=== PATIENT | male | born 1980 ===

== ENCOUNTER 2020-07-15 15:27 | Emergency (ER) | payer OTHER, SELFPAY ==
[2020-07-15 17:07] VITALS: BP 161/94; PULSE 83; RESP 18; TEMP 36.9; O2SAT 98; BMI 32.7
[2020-07-15 17:32] LABS: Glucose Urine UA NEG (NEG); Leukocyte Esterase Urine NEG (NEG); Nitrite Urine NEG (NEG); PH 6.5 (5.0-8.0); Specific Gravity - Urine >= 1.030 (1.005-1.025); Urine Blood NEG (NEG); Urine Ketones 5 MG/DL (NEG); Urine Protein NEG (NEG-TRACE)
[2020-07-15 17:33] LABS: Appearance Urine CLEAR; Color Urine YELLOW
[2020-07-15 17:56] VITALS: BP 149/90; PULSE 75; RESP 16; TEMP 36.7; O2SAT 96
--- NOTE | 2020-07-15 18:06 | CT_ITS ---
EXAMINATION: CT ABDOMEN AND PELVIS WITHOUT CONTRAST CLINICAL INFORMATION: Bilateral flank pain. Hematuria. No urinary tract infection COMPARISON: None TECHNIQUE: Multidetector volumetric imaging was performed from the superior aspect of the liver through the pubic symphysis. Sagittal and coronal reformatted images were obtained on the technologist's workstation. This CT examination was performed using dose optimization techniques as appropriate, variously including the following: *Automated exposure control *Adjustment of mA and/or kV according to patient size (this includes techniques or standardized protocols for targeted exams where dose is matched to indication/reason for exam; i.e. extremities or head) *Use of iterative reconstruction technique DLP: 680 mGy-cm FINDINGS: LUNG BASES: The visualized lung bases are unremarkable. LIVER, GALLBLADDER, AND BILIARY TREE: Liver is diffusely hypoattenuating consistent with diffuse hepatic steatosis, particularly in the right lobe of liver. There is focal fatty sparing adjacent the gallbladder fossa. No focal liver lesion seen. The gallbladder is unremarkable with no evidence of radiopaque gallstones, gallbladder wall thickening, or obvious pericholecystic inflammatory changes. PANCREAS: Unremarkable. SPLEEN: Unremarkable. ADRENAL GLANDS: Unremarkable. KIDNEYS AND URETERS: The kidneys are normal in size, shape, and attenuation. No hydronephrosis, hydroureter, or calculi seen. No perinephric stranding. BLADDER: Unremarkable. GASTROINTESTINAL TRACT: The small and large bowel are unremarkable. The appendix is unremarkable. ABDOMINAL WALL: No significant hernia is appreciated. LYMPH NODES: Normal. VASCULAR: Unremarkable. PELVIC VISCERA: Unremarkable. OSSEOUS STRUCTURES: Unremarkable. CT/CT abdomen pelvis wo con IMPRESSION: No acute CT findings. No radiopaque urolithiasis. No hydronephrosis or hydroureter.
--- NOTE | 2020-07-15 18:07 | ED_ITS ---
HPI - Male Genitourinary General Chief complaint: Urogenital-Male Stated complaint: blood in urine Time Seen by Provider: 07/15/20 17:53 Source: patient Mode of arrival: ambulatory Limitations: no limitations History of Present Illness HPI Narrative: Patient comes to emergency room complaining of bilateral flank pain. Patient states it has been going on for 3-4 days. Patient states he feels a pinching sensation in both flanks intermittently. He came to the emergency room because this morning he noticed that he urinated blood , describes the urine as being very red Related Data Home Medications Medication Instructions Recorded Confirmed albuterol sulfate 90 mcg/actuation 2 puff PO Q4H PRN 04/05/20 04/05/20 aerosol inhaler cetirizine 10 mg tablet 10 mg PO DAILY 04/05/20 04/05/20 Previous Rx's Medication Instructions Recorded cyclobenzaprine 10 mg tablet 10 mg PO BEDTIME PRN #7 tab 06/21/20 prednisone 20 mg tablet 20 mg PO DAILY 9 Days #18 tab MDD 06/21/20 3 for 3days;2 for 3 days;1 3da Allergies Allergy/AdvReac Type Severity Reaction Status Date / Time shellfish derived Allergy Unknown HIVES Verified 07/15/20 17:07 [SHELLFISH DERIVED] shellfish Allergy Unknown hives, Uncoded 02/23/20 00:00 swelling Review of Systems Review of Systems: Constitutional : No Weight loss, No Fever, No Chills, No Night Sweats, No Fatigue, No Malaise ENT/Mouth : No Hearing loss, No Ear Pain, No Nasal Congestion, No Sinus Pain, No Hoarseness, No sore throat, No Rhinorrhea, No Swallowing Difficulty Eyes: No Eye Pain, No Swelling, No Redness, No Foreign Body, No Discharge, No Vision Changes Cardiovascular : No Chest Pain, No SOB, No Dyspnea on Exertion, No Orthopnea, No Edema, No Palpitations Respiratory : No Cough, No Sputum, No Wheezing, No Smoke Exposure, No Dyspnea Gastrointestinal : No Nausea, No Vomiting, No Diarrhea, No Constipation, No abdominal Pain, No Hematochezia, No Melena Genitourinary : no irregular bleeding, No Dysuria, No Urinary Frequency, complaining of Hematuria, No Urinary Incontinence, No Urgency, complaining of bilateral flank Pain, No Urinary Flow Changes, No Hesitancy, Musculoskeletal : No joint pain, No Myalgias, No Joint Swelling Skin : No Skin Lesions, No rash Neuro : No Weakness, No Numbness, No Paresthesias, No Loss of Consciousness, No Dizziness, No Headache Psych : No Anxiety/Panic, No Depression, No SI/HI/AH/VH, No Social Issues, Heme/Lymph: No Bruising, No Bleeding,No Lymphadenopathy Endocrine : No Polyuria, No Polydipsia, No Temperature Intolerance [facility] Past Medical History Medical History Asthma, mild Environmental allergies Impaired fasting blood sugar LFT elevation Social History Social History Alcohol intake: never Smoking Status: Never smoker Use of substances other than those prescribed or required for medical reasons: Yes Substance Use Type: Marijuana Substance Use Frequency: Daily Advance Directives: No Advance Directives Information Provided: No Physical Exam Vital Signs: Vital Signs: Last Vital Signs Temp 98.2 F 07/15/20 20:06 Pulse 77 07/15/20 20:06 Resp 18 07/15/20 20:06 BP 154/97 H 07/15/20 20:06 Pulse Ox 96 07/15/20 20:06 Body Mass Index 32.7 In Appearance: Alert. Oriented X3. No acute distress. Eyes: Pupils equal, round and reactive to light. ENT: Pharynx normal. Neck: Normal inspection. Neck supple. No lymph nodes noted. No crepitus CVS: Normal heart rate and rhythm. Pulses normal. Normal S1 and S2 Respiratory: No respiratory distress. Breath sounds normal. No Wheezing. No rales Abdomen: Soft and nontender. No rigidity. No distention. good BS x4, no CVA tenderness Skin: Skin warm and dry. Normal skin color. Normal skin turgor. Extremities: No lower extremity edema. No lower extremity edema. No Lacerations. No Rash Neuro: Oriented X 3. No motor deficit. No sensory deficit. Moving all extermities. No slurred speech. Course Course Course Narrative: Patient asymptomatic. There is no blood in the urine, CT scan does not show kidney stones. I discussed with the patient that he may have cystitis. Antibiotics are not indicated at this time, no UTI. Discussed with the patient that if this keeps happening, he may need a cystoscopy. MDM - Male Genitourinary Lab Data Result diagrams: 07/15/20 18:19 07/15/20 18:19 Labs: Lab Results 07/15/20 07/15/20 07/15/20 Range/Units 17:22 18:19 18:19 WBC 8.4 (4.8-10.8) X10*3/uL RBC 4.25 L (4.60-5.80) X10*6/uL Hgb 13.0 L (14.0-18.0) g/dl Hct 37.8 L (42-52) % MCV 88.9 (80-98) fL MCH 30.6 (27.0-33.0) pg MCHC 34.4 (31.0-36.0) g/dl RDW 11.9 (11.0-16.0) % Plt Count 231 (160-400) X10*3/uL MPV 9.6 (9.4-12.4) fL Immature Gran % (Auto) 0.2 (0.0-0.4) % Neut % (Auto) 38.9 L (45-73) % Lymph % (Auto) 44.5 H (20-40) % [place] % (Auto) 9.8 (2-11) % Eos % (Auto) 6.1 H (0-4) % Baso % (Auto) 0.5 (0-2) % Lymph # (Auto) 3.7 (1.2-4.9) X10*3/uL [place] # (Auto) 0.8 (0.1-1.2) X10*3/uL Eos # (Auto) 0.5 H (0.0-0.4) X10*3/uL Baso # (Auto) 0.0 (0.0-0.2) X10*3/uL Abs Immat Gran (auto) 0.02 (0.00-0.03) X10*3/uL Absolute Neuts (auto) 3.3 (2.0-8.3) X10*3/uL Absolute Nucleated RBC 0.000 (0.0-0.012) X10*3/uL Nucleated RBC % (auto) 0.0 (0.0-0.2) /100WBC Sodium 138 (135-145) mmol/L Potassium 3.9 (3.3-5.1) mmol/l Chloride 104 (96-108) mmol/L Carbon Dioxide 26 (22-29) mmol/L Anion Gap 12 (12-20) BUN 19 H (9-16) mg/dL Creatinine 1.04 (0.5-1.4) mg/dL Estim Creat Clear Calc 104.6 Estimated GFR > 60 Random Glucose 140 H (60-115) mg/dL Calcium 8.8 (8.4-10.2) mg/dL Urine Color YELLOW Urine Appearance CLEAR Urine pH 6.5 (5.0-8.0) Ur Specific [place] >= 1.030 H (1.005-1.025) Urine Protein NEG (NEG-TRACE) MG/DL Urine Glucose (UA) NEG (NEG) MG/DL Urine Ketones 5 (NEG) MG/DL Urine Blood NEG (NEG) Urine Nitrite NEG (NEG) Ur Leukocyte Esterase NEG (NEG) Discharge Plan Discharge Clinical Impression: Cystitis Patient Disposition: Home, Self-Care Instructions: Interstitial Cystitis (ED) Additional Instructions: Please follow-up with your primary care physician tomorrow. If you have any worsening or new symptoms, please return to the emergency room or call 911 Prescriptions: No Action albuterol sulfate 90 mcg/actuation HFA aerosol inhaler 2 puff PO Q4H PRNRF: 0 cetirizine 10 mg tablet 10 mg PO DAILY RF: 0 prednisone 20 mg tablet 20 mg PO DAILY MDD 3 for 3days;2 for 3 days;1 3da 9 Days Qty: 18 RF: 0 cyclobenzaprine 10 mg tablet 10 mg PO BEDTIME PRN (Reason: muscle spasm) Qty: 7 RF: 0
[2020-07-15 18:23] VITALS: BP 142/87; PULSE 67; RESP 18; TEMP 36.7; O2SAT 96
[2020-07-15 18:24] LABS: MANUAL DIFF FLAG NO
[2020-07-15 18:25] LABS: Basophils Percent Auto 0.5 % (0-2); Eosinophils Absolute Auto 0.5 X10*3/uL (0.0-0.4); Eosinophils Percent Auto 6.1 % (0-4); Hematocrit 37.8 % (42-52); Imm Gran Abs Auto 0.02 X10*3/uL (0.00-0.03); Imm Gran Pct Auto 0.2 % (0.0-0.4); Lymphocytes Absolute Auto 3.7 X10*3/uL (1.2-4.9); Lymphocytes Percent Auto 44.5 % (20-40); Mean Corpuscular HGB Conc 34.4 g/dl (31.0-36.0); Mean Corpuscular Hemoglobin 30.6 pg (27.0-33.0); Mean Corpuscular Volume 88.9 fL (80-98); Mean Platelet Volume 9.6 fL (9.4-12.4); Monocytes Absolute Auto 0.8 X10*3/uL (0.1-1.2); Monocytes Percent Auto 9.8 % (2-11); Neutrophils Absolute Auto 3.3 X10*3/uL (2.0-8.3); Neutrophils Percent Auto 38.9 % (45-73); Platelet Count 231 X10*3/uL (160-400); Red Blood Count 4.25 X10*6/uL (4.60-5.80); Red Cell Distribution Width 11.9 % (11.0-16.0); White Blood Count 8.4 X10*3/uL (4.8-10.8)
--- NOTE | 2020-07-15 18:30 | PC.NURSE ---
patient a&ox3, vss, patient states he has hematuria as well as bilateral flank discomfort 10/07, labs drawn, urine obtained in triage, pt awaiting ct scan, will continue to monitor.
[2020-07-15 18:45] LABS: Anion Gap 12 (12-20); Blood Urea Nitrogen 19 mg/dL (9-16); Calcium 8.8 mg/dL (8.4-10.2); Carbon Dioxide 26 mmol/L (22-29); Chloride 104 mmol/L (96-108); Creatinine Clr Calc Pharmacy 104.6; Estimated Glomerular Filt Rate > 60; Glucose Random 140 mg/dL (60-115); Potassium 3.9 mmol/l (3.3-5.1); Sodium 138 mmol/L (135-145)
[2020-07-15 20:06] VITALS: BP 154/97; PULSE 77; RESP 18; TEMP 36.8; O2SAT 96
== END 2020-07-15 21:38 | disposition home or self-care (01) ==
PROVIDERS: Emergency Provider Emergency Medicine; PCP Internal Medicine
DX: N30.01 Acute cystitis with hematuria (principal); R10.9 Unspecified abdominal pain; F12.90 Cannabis use, unspecified, uncomplicated; Z79.899 Other long term (current) drug therapy
CPT/HCPCS: 36415; 74176; 80048; 81003; 85025; 99284

== ENCOUNTER → 2021-02-06 08:24 | Outpatient (REF) | payer OTHER, SELFPAY ==
--- NOTE | 2021-02-06 08:27 | CA_ITS ---
Transthoracic Echocardiogram Patient (Last, First, Middle): Cornelio oMreno, Gender: Male Date of : 1980 Age: 40 Procedure Date: 02/06/2021 Procedure Type: Transthoracic Echocardiogram Location: OP Height: 170.18 cm Weight: 94.8 kg BSA: 2.06 m2 Heart Rate: bpm BP: 140 / 90 mmHg Ux Visual Designer: JUSTUS Referring MD: Carrol Stafford MD Symptoms: R07.89 - Other chest pain Conclusions: - Essentially normal study Findings Left Ventricle Normal left ventricular size, thickness, and systolic function. The visually estimated ejection fraction is between 60-65%. Spectral Doppler is indicative of a normal filling pattern. Right Ventricle Normal right ventricular cavity size and systolic function. Atria Both atria are normal in size. There is no evidence of interatrial shunt. Aortic Valve The aortic valve structure and function is likely normal. There is no aortic valve stenosis. There is no aortic valve regurgitation. Mitral Valve Normal mitral valve structure and function. There is trace mitral valve regurgitation. There is no mitral valve stenosis. Pulmonic Valve The pulmonic valve was not well visualized. Tricuspid Valve Likely normal tricuspid valve structure and function. There is trace tricuspid valve regurgitation. The right ventricular systolic pressure is normal. The right ventricular systolic pressure is 26 mmHg. Normal right atrial pressure. There is no evidence of pulmonary hypertension. Great Vessels All visible segments of the aorta are normal in size. The pulmonary artery was not well visualized. Venous The inferior vena cava is normal in size and collapses greater than 50% with inspiration. Pericardium/Pleural There is no evidence of pericardial effusion. Prior Study Comparison No prior study available for comparison. Measurements 2D Linear Measurements IVSd: 1.02 0.6-0.9/0.6-1.0 cm LVIDd: 4.18 3.9-5.3/4.2-5.9 cm LVIDd Index: 2.03 2.4-3.2/2.2-3.1 cm/m2 LVIDs: 2.83 2.0-3.6 cm LVPWd: 1.05 0.7-1.1 cm Ao Root: 3.10 2.1-3.5 cm LA Diam: 3.40 2.7-3.8/3.0-4.0 cm LAIDs Index: 1.65 1.5-2.3 cm/m2 LV Mass: 236.84 67-162/88-224 g LV Mass Index: 114.97 43-95/49-115 g/m2 LVOT Diam: 2.30 3.0+(-)1.3 cm 2D Systolic Function EF 4C: 53.60 >55% EF 2C: 64.20 >55% EF BiP: 60.10 >55% Mitral Valve MV Pk E: 0.97 MV PK A: 0.61 MV Decel Time: 175.00 E/A: 1.60 E'Lateral: 13.40 E'Medial: 9.36 E/E' Med: 10.40 E/E' Lat: 7.30 PHT: 51.00 MVA PHT: 4.31 Decel [place]: 5.56 Aortic Valve AoV Pk Kuldeep: 1.25 AoV Pk Grad: 6.00 LVOT LVOT Pk Kuldeep: 0.85 LVOT Mn Kuldeep: 0.59 LVOT VTI: 0.19 LVOT Pk Grad: 3.00 LVOT Mn Grad: 2.00 LVOT Diam: 2.30 LVOT Area: 4.15 Diastolic Function MV Pk E: 0.97 MV Pk A: 0.61 E/A: 1.60 E'Medial: 9.36 E/E' Med: 10.40 E' Laterial: 13.40 E/E' Lat: 7.30 Right Ventricle TAPSE (mm): 2.53 Tricuspid Valve TR Pk Kuldeep: 2.42 TR Pk Grad: 23.00 RA Press: 3.00 RVSP: 26.00 Great Vessels Aorta Ao Root-2D: 3.10 2.0-3.7 cm Ao Asc: 3.20 2.1-3.4 cm Ao Arch: 2.70 Updated in Other Vendor System with Status of Final Chandler Luevano MD electronically signed on 02/07/2021 4:01:51 PM with status of Final
== END ==
LOC: HO.CARD 08:24
PROVIDERS: PCP Internal Medicine; Visit Provider Internal Medicine
DX: R07.89 Other chest pain (principal); R94.31 Abnormal electrocardiogram [ECG] [EKG]
CPT/HCPCS: 93306

== ENCOUNTER 2021-05-04 07:57 | Outpatient (REF) | payer OTHER, SELFPAY ==
[2021-05-04 11:39] LABS: MANUAL DIFF FLAG NO
[2021-05-04 11:46] LABS: Basophils Absolute Auto 0.1 X10*3/uL (0.0-0.2); Basophils Percent Auto 0.6 % (0-2); Eosinophils Absolute Auto 0.2 X10*3/uL (0.0-0.4); Eosinophils Percent Auto 2.4 % (0-4); Hematocrit 43.9 % (42.0-52.0); Hemoglobin 15.1 g/dl (14.0-18.0); Imm Gran Abs Auto 0.03 X10*3/uL (0.00-0.03); Imm Gran Pct Auto 0.4 % (0.0-0.4); Lymphocytes Absolute Auto 2.7 X10*3/uL (1.2-4.9); Lymphocytes Percent Auto 33.9 % (20-40); Mean Corpuscular HGB Conc 34.4 g/dl (31.0-36.0); Mean Corpuscular Hemoglobin 29.9 pg (27.0-33.0); Mean Corpuscular Volume 86.9 fL (80.0-98.0); Mean Platelet Volume 11.9 fL (9.4-12.4); Monocytes Absolute Auto 0.7 X10*3/uL (0.1-1.2); Monocytes Percent Auto 8.3 % (2-11); Neutrophils Absolute Auto 4.4 x10*3/uL (2.0-8.3); Neutrophils Percent Auto 54.4 % (45-73); Platelet Count 234 X10*3/uL (160-400); Red Blood Count 5.05 X10*6/uL (4.60-5.80); Red Cell Distribution Width 11.7 % (11.0-16.0)
[2021-05-04 12:02] LABS: Alanine Aminotransferase 57 U/L (0-40); Albumin Level 4.8 g/dL (3.5-5.0); Alkaline Phosphatase 90 U/L (39-117); Anion Gap 15 (12-20); Aspartate Amino Transferase 33 U/L (5-37); Bilirubin Total 0.6 mg/dL (0.0-1.0); Blood Urea Nitrogen 20 mg/dL (9-16); Calcium 9.1 mg/dL (8.4-10.2); Carbon Dioxide 24 mmol/L (22-29); Chloride 97 mmol/L (96-108); Cholesterol 193 mg/dL; Estimated Glomerular Filt Rate > 60; Glucose Fasting 328 mg/dL (60-99); HDL Cholesterol 26 mg/dL; Potassium 4.1 mmol/L (3.3-5.1); Sodium 132 mmol/L (135-145); Total Protein 7.9 g/dL (6.5-8.0); Triglycerides 573 mg/dL
[2021-05-04 12:06] LABS: Estimated Average Glucose 295 mg/dL; Hemoglobin A1c % 11.9 %
[2021-05-04 12:26] LABS: TSH reflex Free T4 0.92 uIU/mL (0.32-4.0)
== END 2021-05-04 07:58 | disposition home or self-care (01) ==
LOC: HO.HMGCLDS 07:57
PROVIDERS: PCP Internal Medicine; Visit Provider Internal Medicine
DX: E66.9 Obesity, unspecified (principal); Z68.32 Body mass index [BMI] 32.0-32.9, adult; J45.909 Unspecified asthma, uncomplicated; R73.01 Impaired fasting glucose; R79.89 Other specified abnormal findings of blood chemistry; Z91.09 Other allergy status, other than to drugs and biological substances; R07.89 Other chest pain; R94.31 Abnormal electrocardiogram [ECG] [EKG]; B36.0 Pityriasis versicolor; R03.0 Elevated blood-pressure reading, without diagnosis of hypertension
CPT/HCPCS: 36415; 80053; 80061; 83036; 84443; 85025

== ENCOUNTER 2021-09-14 11:28 | Outpatient (REF) | payer OTHER, SELFPAY ==
[2021-09-14 14:06] LABS: Estimated Average Glucose 183 mg/dL
[2021-09-14 14:08] LABS: Alanine Aminotransferase 62 U/L (0-40); Albumin Level 4.5 g/dL (3.5-5.0); Alkaline Phosphatase 58 U/L (39-117); Anion Gap 12 (12-20); Aspartate Amino Transferase 31 U/L (5-37); Bilirubin Total 0.8 mg/dL (0.0-1.0); Blood Urea Nitrogen 20 mg/dL (9-16); Calcium 9.6 mg/dL (8.4-10.2); Carbon Dioxide 27 mmol/L (22-29); Chloride 102 mmol/L (96-108); Estimated Glomerular Filt Rate > 60; Glucose Random 166 mg/dL (60-115); Potassium 3.9 mmol/L (3.3-5.1); Sodium 137 mmol/L (135-145); Total Protein 7.5 g/dL (6.5-8.0); Triglycerides 121 mg/dL
[2021-09-15 19:16] LABS: LDL Cholesterol Direct 120 mg/dL (<100)
== END 2021-09-14 11:29 | disposition home or self-care (01) ==
LOC: HO.HMGCLDS 11:28
PROVIDERS: PCP Internal Medicine; Visit Provider Internal Medicine
DX: E11.65 Type 2 diabetes mellitus with hyperglycemia (principal); E78.1 Pure hyperglyceridemia; I10 Essential (primary) hypertension; J45.909 Unspecified asthma, uncomplicated; R79.89 Other specified abnormal findings of blood chemistry; E66.9 Obesity, unspecified; Z68.32 Body mass index [BMI] 32.0-32.9, adult; Z91.09 Other allergy status, other than to drugs and biological substances
CPT/HCPCS: 36415; 80053; 83036; 83721; 84478

== ENCOUNTER 2022-02-04 06:59 | Outpatient (REF) | payer OTHER, SELFPAY ==
[2022-02-04 11:33] LABS: Estimated Average Glucose 171 mg/dL; Hemoglobin A1c % 7.6 %
[2022-02-04 12:03] LABS: Alanine Aminotransferase 55 U/L (0-40); Albumin Level 4.5 g/dL (3.5-5.0); Alkaline Phosphatase 56 U/L (39-117); Anion Gap 13 (12-20); Aspartate Amino Transferase 29 U/L (5-37); Bilirubin Total 0.6 mg/dL (0.0-1.0); Blood Urea Nitrogen 22 mg/dL (9-16); Calcium 9.1 mg/dL (8.4-10.2); Carbon Dioxide 27 mmol/L (22-29); Chloride 100 mmol/L (96-108); Cholesterol 181 mg/dL; Estimated Glomerular Filt Rate > 60; Glucose Fasting 214 mg/dL (60-99); HDL Cholesterol 41 mg/dL; LDL Cholesterol Calculated 109 mg/dl; Potassium 3.9 mmol/L (3.3-5.1); Sodium 136 mmol/L (135-145); Total Protein 7.3 g/dL (6.5-8.0); Triglycerides 159 mg/dL
== END 2022-02-04 07:00 | disposition home or self-care (01) ==
LOC: HO.HMGCLDS 06:59
PROVIDERS: PCP Internal Medicine; Visit Provider Internal Medicine
DX: E78.1 Pure hyperglyceridemia (principal); I10 Essential (primary) hypertension; E11.9 Type 2 diabetes mellitus without complications
CPT/HCPCS: 36415; 80053; 80061; 83036

== ENCOUNTER 2022-09-26 07:36 | Outpatient (REF) | payer OTHER, SELFPAY ==
[2022-09-26 11:12] LABS: MANUAL DIFF FLAG NO
[2022-09-26 11:18] LABS: Basophils Absolute Auto 0.1 X10*3/uL (0.0-0.2); Basophils Percent Auto 0.6 % (0-2); Eosinophils Absolute Auto 0.3 X10*3/uL (0.0-0.4); Eosinophils Percent Auto 3.4 % (0-4); Hematocrit 40.4 % (42.0-52.0); Hemoglobin 13.6 g/dl (14.0-18.0); Imm Gran Abs Auto 0.04 X10*3/uL (0.00-0.03); Imm Gran Pct Auto 0.5 % (0.0-0.4); Lymphocytes Percent Auto 33.4 % (20-40); Mean Corpuscular HGB Conc 33.7 g/dl (31.0-36.0); Mean Corpuscular Hemoglobin 30.2 pg (27.0-33.0); Mean Corpuscular Volume 89.8 fL (80.0-98.0); Mean Platelet Volume 10.4 fL (9.4-12.4); Monocytes Absolute Auto 0.9 X10*3/uL (0.1-1.2); Monocytes Percent Auto 10.4 % (2-11); Neutrophils Absolute Auto 4.6 x10*3/uL (2.0-8.3); Neutrophils Percent Auto 51.7 % (45-73); Platelet Count 298 X10*3/uL (160-400); Red Cell Distribution Width 12.7 % (11.0-16.0); White Blood Count 8.9 X10*3/uL (4.8-10.8)
[2022-09-26 11:28] LABS: Estimated Average Glucose 206 mg/dL; Hemoglobin A1c % 8.8 %
[2022-09-26 11:38] LABS: Alanine Aminotransferase 57 U/L (0-40); Albumin Level 4.4 g/dL (3.5-5.0); Alkaline Phosphatase 53 U/L (39-117); Anion Gap 13 (12-20); Aspartate Amino Transferase 24 U/L (5-37); Bilirubin Total 0.7 mg/dL (0.0-1.0); Blood Urea Nitrogen 23 mg/dL (9-16); Calcium 9.4 mg/dL (8.4-10.2); Carbon Dioxide 27 mmol/L (22-29); Chloride 101 mmol/L (96-108); Cholesterol 177 mg/dL; Estimated Glomerular Filt Rate > 60; Glucose Fasting 221 mg/dL (60-99); Glucose Random 225 mg/dL (60-115); HDL Cholesterol 44 mg/dL; LDL Cholesterol Calculated 106 mg/dl; Potassium 4.2 mmol/L (3.3-5.1); Sodium 137 mmol/L (135-145); Total Protein 7.1 g/dL (6.5-8.0); Triglycerides 137 mg/dL
[2022-09-26 12:04] LABS: Creatinine Urine 120.85 mg/dL; Microalbum/Creatinine Ratio Ur 5.7 ug/mg cr
== END 2022-09-26 07:37 | disposition home or self-care (01) ==
LOC: HO.HMGCLDS 07:36
PROVIDERS: PCP Internal Medicine; Visit Provider Internal Medicine
DX: E11.65 Type 2 diabetes mellitus with hyperglycemia (principal); E78.9 Disorder of lipoprotein metabolism, unspecified; E78.1 Pure hyperglyceridemia; I10 Essential (primary) hypertension
CPT/HCPCS: 36415; 80053; 80061; 82043; 83036; 85025

== ENCOUNTER 2023-01-17 08:31 | Outpatient (AMB) | payer OTHER, SELFPAY ==
--- NOTE | 2023-01-17 08:46 | AM.OFFWIN_ITS ---
Intake Vital Signs 01/17/23 08:48 BP 122/76 Blood Pressure Location Rt brachial Position Sitting Pulse 74 Pulse Source Pulse Oximeter Pulse Oximetry (%) 98 Oxygen Delivery Method Room Air Intake Visit Reasons: EP, High Blood Sugar(over 300 per pt) Intake Note: Patient here for blood sugar being high which was 378, pt states it has been like this for about 3 weeks. Patient Tobacco Use Status: Former Tobacco user Quit Date: quit 17 years ago Allergies shellfish derived [SHELLFISH DERIVED] Allergy (Unknown, Verified 01/17/23 08:47) HIVES Do you need a note to return to daycare/school/sports/work: Yes HPI EP, High Blood Sugar(over 300 per pt) HPI0 Details 42-year-old male presents to the office for a sick visit. Patient has noticed that his blood sugars have been elevated over the last month. Random b lood sugars are greater than 300. Currently he is on pioglitazone only. He missed an appointment with his primary care provider last week. Reports symptoms of malaise and fatigue. [facility] Medical History Asthma, mild Environmental allergies Impaired fasting blood sugar LFT elevation Surgical History No pertinent past surgical history Family History Father Unknown family medical history Mother HTN (hypertension) Diabetes mellitus High cholesterol Daughter No problems noted. Daughter No problems noted. Daughter No problems noted. Social History Housing: House Alcohol intake: never Patient Tobacco Use Status: Former Tobacco user Quit Date: quit 17 years ago Tobacco use type: Cigarette Years Smoked: 12 e-Cigarette/Vaping Use: Never Used Substance Use Type: Marijuana Current occupational status: unemployed and student Cognitive needs: No Hearing needs: No Vision needs: No Physical Exam Vital Signs: Last Vital Signs Pulse 74 01/17/23 08:48 BP 122/76 01/17/23 08:48 Pulse Ox 98 01/17/23 08:48 Oxygen Delivery Method Room Air 01/17/23 08:48 Const General: cooperative and healthy appearing Nutritional Appearance: well nourished Orientation/consciousness: patient oriented x3 Limitations: no limitations HEENT Head: Yes normal to inspection Eyes General: appearance normal, both eyes and all related structures Neck Neck: Yes normal visual inspection Chest Chest palpation & inspection: normal palpation of entire chest wall Resp Effort & Inspection: normal respiratory effort Neuro General: patient oriented x3 Results AMB Random Glucose (hemocue) AMB Random Glucose (hemocue) 276 mg/dL Last Edit by DANY Mcmanus on 01/17/23 08:58 Results Reviewed Results Reviewed: Laboratory Last Values Random Glu (Clinic) 276 mg/dL 01/17/23 08:56 Assessment & Plan Assessment & Plan (1) Type 2 diabetes mellitus: Code(s): E11.9 - Type 2 diabetes mellitus without complications Plan: Patient had been taking metformin and sulfonylurea combination in the past. The same has been restarted. I asked him to continue the pioglitazone. He is sc heduled to make an appointment with the primary care provider in the next month to discuss further options. Orders: Orders AMB Random Glucose (hemocue) Today E11.65 - Type 2 diabetes mellitus with hyperglycemia, E11.9 - Type 2 diabetes mellitus without complications Medications: New glipizide-metformin 5-500 mg 1 tab PO BID 30 tabs 0RF Coding Level of Care Code Est Pt Level 4 (57486) Diagnoses Type 2 diabetes mellitus E11.9
[2023-01-17 08:48] VITALS: BP 122/76; PULSE 74; O2SAT 98
== END 2023-01-17 09:55 | disposition home or self-care (01) ==
PROVIDERS: PCP Internal Medicine; Visit Provider Internal Medicine
DX: E11.65 Type 2 diabetes mellitus with hyperglycemia (principal); E11.9 Type 2 diabetes mellitus without complications
CPT/HCPCS: 82948; 99214

== ENCOUNTER 2023-01-21 14:08 | Outpatient (AMB) | payer OTHER, SELFPAY ==
[2023-01-21 14:19] VITALS: BP 142/86; PULSE 89; O2SAT 95; BMI 32.0
--- NOTE | 2023-01-21 14:19 | MHC.PC.OV ---
Vital Signs 01/21/23 14:19 Height 5 ft 7 in Weight 204 lb 6 oz BMI 32.0 BP 142/86 H Blood Pressure Location Lt brachial Position Sitting Pulse 89 Pulse Source Pulse Oximeter Pulse Oximetry (%) 95 Oxygen Delivery Method Room Air Intake Visit Reasons: Follow up from walk in Allergies shellfish derived [SHELLFISH DERIVED] Allergy (Unknown, Verified 01/21/23 14:20) HIVES Medication List - Last Reconciled 01/21/23 by Carrol Stafford MD albuterol sulfate 90 mcg/actuation 2 puffs PO Q4H PRN 30 days albuterol sulfate 90 mcg/actuation (Ventolin HFA) 1 inh inhalation QID PRN 30 days blood sugar diagnostic (FreeStyle Lite Strips) Patient to take fasting blood sugar once daily blood-glucose meter (FreeStyle Lite Meter kit) Patient to take fasting blood sugar once daily cetirizine 10 mg PO DAILY 90 days epinephrine (EpiPen) 0.3 mg (0.3 mL) IM Q10M PRN 90 days glipizide-metformin 5-500 mg 1 tab PO BID lancets (FreeStyle Lancets) patient to take fasting blood sugar once daily losartan-hydrochlorothiazide 50-12.5 mg 1 tab PO DAILY 90 days pioglitazone 45 mg PO DAILY 90 days selenium sulfide 2.5% 1 appl topical DAILY 2 weeks Tobacco use date assessed: 01/21/23 Dental Screening Dental Screen Date: 01/21/23 Did you have a dental visit in the last 12 months?: Yes Did you have a dental problem in the last 6 months where you did not have access to dental care?: No Was dental information given to patient?: No [facility] Details Patient is a 42-year-old gentleman came in today for his regular follow-up appointment We stopped glipizide metformin last visit in August when he said he is having headaches with this medication and started him on pioglitazone. He came in recently seeing that his sugars are running high so he was restarted on glipizide metformin. Patient then stopped pioglitazone on his own thinking that he is only to take 1 medication. Explained to him that he is supposed to continue both of them glipizide metformin b.i.d. 12 hours apart and pioglitazone 45 mg once a day He is to monitor his fasting sugar and give me the readings in 7 days. Blood pressure is slightly elevated today patient is on losartan hydrochlorothiazide 50-12.5 mg no side effects. Continue gemfibrozil 600 mg for lipid control Seasonal allergies: Patient is on albuterol inhaler as needed, patient is taking long-acting antihistamine. Follow-up 3 months labs are needed before visit BMI elevated at 32.0 need to lose weight, he tells me that he has started going to gym [facility] Medical History Asthma, mild Environmental allergies Impaired fasting blood sugar LFT elevation Surgical History No pertinent past surgical history Family History Father Unknown family medical history Mother HTN (hypertension) Diabetes mellitus High cholesterol Daughter No problems noted. Daughter No problems noted. Daughter No problems noted. Social History Housing: House Alcohol intake: never Patient Tobacco Use Status: Former Tobacco user Quit Date: quit 17 years ago Tobacco use type: Cigarette Years Smoked: 12 e-Cigarette/Vaping Use: Never Used Substance Use Type: Marijuana Current occupational status: unemployed and student Cognitive needs: No Hearing needs: No Vision needs: No Questionnaire PHQ-9 Over the last 2 weeks, how often have you been bothered by any of the following problems? 1. Little interest or pleasure in doing things: not at all 2. Feeling down, depressed, or hopeless: not at all 3. Trouble falling or staying asleep, or sleeping too much: not at all 4. Feeling tired or having little energy: not at all 5. Poor appetite or overeating: not at all 6. Feeling bad about yourself - or that you are a failure or have let yourself or your family down: not at all 7. Trouble concentrating on things, such as reading the newspaper or watching television: not at all 8. Moving or speaking so slowly that other people could have noticed. Or the opposite - being so fidgety or restless that you have been moving around a lot more than usual: not at all 9. Thoughts that you would be better off or of hurting yourself in some way: not at all Total score: 0 Depression Screening Interpretation: Negative 51440 - PHQ-9 Billing: Yes Source: Developed by Drs. Brock Gusman, Rolly Solis and colleagues, with an educational fartun from [employer]. Thrive Questionnaire Date Thrive assessed: 01/21/23 I am a: Patient What is your living situation today?: I have a steady place to live Within the past 12 months, did the food you bought not last and you didn't have the money to get more?: Never true Within the past 12 months, did you worry whether your food would run out before you got money to buy more?: Never true Do you have trouble paying for medicines?: No Do you have trouble getting transportation to medical appointments?: No Do you have trouble paying your heating and electricity bill?: No Do you have trouble taking care of your child, family member or friend?: No Do you have trouble with day-to-day activities such as bathing, preparing meals, shopping, managing finances, etc.?: No Are you currently unemployed and looking for a job?: No Are you interested in more education?: No AUDIT C Alcohol Use Questionnaire (AUDIT-C) 1. How often do you have a drink containing alcohol?: Never 3. How often do you have six or more drinks on one occasion?: Never Total Score: 0 Score Reviewed/Action Taken: Yes SALIMA-7 AMB Questionnaire SALIMA-7 Date SALIMA - 7 assessed: 01/21/23 Feeling nervous, anxious, or on edge: 0 = Not at all Not being able to stop or control worryin = Not at all Worrying too much about different things: 0 = Not at all Trouble relaxin = Not at all Being so restless that it is hard to sit still: 0 = Not at all Becoming easily annoyed or irritable: 0 = Not at all Feeling afraid as if something awful might happen: 0 = Not at all Total SALIMA-7 score (0-4 normal; 5-9 mild; 10-14 moderate; 15-21 severe): 0 Source: Developed by Carly Malloy Kurt Kroenke and colleagues, with an educational fartun from [employer]. SALIMA-7 Assessment Billing SALIMA-7 Assessment Tool: SALIMA-7 Assessment 37813 Review of Systems Const Denies chills and Denies fever(s) ENT Denies epistaxis and Denies nasal discharge Card Denies chest pain Resp Denies chest congestion, Denies cough and Denies hemoptysis GI Denies diarrhea and Denies nausea Skin/Breast Denies rash Neuro Reports no additional complaints Psych Reports no additional complaints Endo Reports no additional complaints Physical exam (Primary Care) Vital Signs: Last Vital Signs Pulse 89 01/21/23 14:19 BP 142/86 H 01/21/23 14:19 Pulse Ox 95 01/21/23 14:19 Oxygen Delivery Method Room Air 01/21/23 14:19 BMI result Body Mass Index 32.0 Tobacco/Smoking Status: Tobacco use Status Tobacco use date assessed 01/21/23 01/21/23 14:20 Patient Tobacco Use Status Former Tobacco user 01/21/23 14:20 Tobacco use type Cigarette 01/21/23 14:20 e-Cigarette/Vaping Use Never Used 01/21/23 14:20 PHQ-9: PHQ-9 Score PHQ-9: Total score 0 01/21/23 14:38 Depression Screening Interpretation: Negative Thrive Assessment: Date of Thrive Assessment Date Thrive assessed 01/21/23 01/21/23 14:38 Const General: cooperative, comfortable and no acute distress Orientation/consciousness: patient oriented x3 HENMT Head: Yes normocephalic Eyes General: appearance normal, both eyes and all related structures Neck Neck: Yes supple Resp Effort & Inspection: normal respiratory effort, no cough and no stridor Cardio Rhythm: regular rhythm Heart sounds: S1 normal heart sound present and S2 normal heart sound present Skin General skin exam: turgor normal Neuro General: patient oriented x3, tone normal and moves all extremities Extrem Right lower extremity: no edema Left lower extremity: no edema Assessment and Plan Assessment & Plan (1) Diabetes type 2, uncontrolled: Code(s): E11.65 - Type 2 diabetes mellitus with hyperglycemia (2) Hypertension, essential: Code(s): I10 - Essential (primary) hypertension (3) Lipid disorder: Code(s): E78.9 - Disorder of lipoprotein metabolism, unspecified (4) Obesity (BMI 30.0-34.9): Code(s): E66.9 - Obesity, unspecified (5) Environmental allergies: Code(s): Z91.09 - Other allergy status, other than to drugs and biological substances (6) Asthma, mild: Code(s): J45.909 - Unspecified asthma, uncomplicated (7) Shellfish allergy: Code(s): Z91.013 - Allergy to seafood (8) Seasonal asthma: Code(s): J45.998 - Other asthma Plan Patient is a 42-year-old gentleman came in today for his regular follow-up appointment We stopped glipizide metformin last visit in August when he said he is having headaches with this medication and started him on pioglitazone. He came in recently seeing that his sugars are running high so he was restarted on glipizide metformin. Patient then stopped pioglitazone on his own thinking that he is only to take 1 medication. Explained to him that he is supposed to continue both of them glipizide metformin b.i.d. 12 hours apart and pioglitazone 45 mg once a day He is to monitor his fasting sugar and give me the readings in 7 days. Blood pressure is slightly elevated today patient is on losartan hydrochlorothiazide 50-12.5 mg no side effects. Continue gemfibrozil 600 mg for lipid control Seasonal allergies: Patient is on albuterol inhaler as needed, patient is taking long-acting antihistamine. Follow-up 3 months labs are needed before visit BMI elevated at 32.0 need to lose weight, he tells me that he has started going to gym Orders: Orders Comprehensive Met. Panel Today E11.65 - Type 2 diabetes mellitus with hyperglycemia, E66.9 - Obesity, unspecified, E78.9 - Disorder of lipoprotein metabolism, unspecified, I10 - Essential (primary) hypertension, J45.909 - Unspecified asthma, uncomplicated, Z91.09 - Other allergy status, other than to drugs and biological substances Hemoglobin A1c Today E11.65 - Type 2 diabetes mellitus with hyperglycemia, E66.9 - Obesity, unspecified, E78.9 - Disorder of lipoprotein metabolism, unspecified, I10 - Essential (primary) hypertension, J45.909 - Unspecified asthma, uncomplicated, Z91.09 - Other allergy status, other than to drugs and biological substances LDL Cholesterol Direct Today E11.65 - Type 2 diabetes mellitus with hyperglycemia, E66.9 - Obesity, unspecified, E78.9 - Disorder of lipoprotein metabolism, unspecified, I10 - Essential (primary) hypertension, J45.909 - Unspecified asthma, uncomplicated, Z91.09 - Other allergy status, other than to drugs and biological substances Microalbumin, Random (w Creat) Today E11.65 - Type 2 diabetes mellitus with hyperglycemia, E66.9 - Obesity, unspecified, E78.9 - Disorder of lipoprotein metabolism, unspecified, I10 - Essential (primary) hypertension, J45.909 - Unspecified asthma, uncomplicated, Z91.09 - Other allergy status, other than to drugs and biological substances Medications: Changed From glipizide-metformin 5-500 mg 1 tab PO BID 30 tabs 0RF To glipizide-metformin 5-500 mg 1 tab PO BID 90 days 180 tabs 0RF Diabetes Refilled pioglitazone 45 mg PO DAILY 90 days 90 tabs 1RF Coding Level of Care Code Est Pt Level 4 (03294) Diagnoses Diabetes type 2, uncontrolled E11.65 Hypertension, essential I10 Lipid disorder E78.9 Obesity (BMI 30.0-34.9) E66.9 Environmental allergies Z91.09 Asthma, mild J45.909 Shellfish allergy Z91.013 Seasonal asthma J45.998 Additional Codes SALIMA-7 Assessment Billing - SALIMA-7 Assessment Tool: SALIMA-7 Assessment 54965 ([id number])
== END 2023-01-21 14:45 | disposition home or self-care (01) ==
PROVIDERS: PCP Internal Medicine; Visit Provider Internal Medicine
DX: E11.65 Type 2 diabetes mellitus with hyperglycemia (principal); I10 Essential (primary) hypertension; J45.909 Unspecified asthma, uncomplicated; Z91.09 Other allergy status, other than to drugs and biological substances; E78.9 Disorder of lipoprotein metabolism, unspecified; E66.9 Obesity, unspecified; Z91.013 Allergy to seafood; Z68.32 Body mass index [BMI] 32.0-32.9, adult; J45.998 Other asthma
CPT/HCPCS: 99214

== ENCOUNTER 2023-07-22 14:24 | Outpatient (REF) | payer OTHER, SELFPAY ==
[2023-07-22 16:21] LABS: Estimated Average Glucose 154 mg/dL
[2023-07-22 16:22] LABS: Alanine Aminotransferase 51 U/L (0-40); Albumin Level 4.5 g/dL (3.5-5.0); Alkaline Phosphatase 46 U/L (39-117); Anion Gap 13 (12-20); Aspartate Amino Transferase 30 U/L (5-37); Bilirubin Total 0.6 mg/dL (0.0-1.0); Blood Urea Nitrogen 19 mg/dL (9-16); Calcium 9.8 mg/dL (8.4-10.2); Carbon Dioxide 30 mmol/L (22-29); Chloride 99 mmol/L (96-108); Estimated Glomerular Filt Rate > 60; Glucose Random 112 mg/dL (60-115); Potassium 3.6 mmol/L (3.3-5.1); Sodium 138 mmol/L (135-145); Total Protein 7.6 g/dL (6.5-8.0)
[2023-07-22 16:42] LABS: Creatinine Urine 119.92 mg/dL; Microalbumin Urine < 5.0 mg/L
[2023-07-24 19:34] LABS: LDL Cholesterol Direct 93 mg/dL (<100)
== END 2023-07-22 14:25 | disposition home or self-care (01) ==
LOC: HO.HMGCLDS 14:24
PROVIDERS: PCP Internal Medicine; Visit Provider Internal Medicine
DX: E11.65 Type 2 diabetes mellitus with hyperglycemia (principal); I10 Essential (primary) hypertension; E78.9 Disorder of lipoprotein metabolism, unspecified; E66.9 Obesity, unspecified; Z91.09 Other allergy status, other than to drugs and biological substances; J45.909 Unspecified asthma, uncomplicated
CPT/HCPCS: 36415; 80053; 82043; 82570; 83036; 83721

== ENCOUNTER 2023-07-22 14:38 | Outpatient (AMB) | payer OTHER, SELFPAY ==
[2023-07-22 14:40] VITALS: BP 140/88; PULSE 86; O2SAT 97; BMI 35.6
--- NOTE | 2023-07-22 14:40 | A.OFFPC_ITS ---
Vital Signs 07/22/23 14:40 Height 5 ft 7 in Weight 227 lb 8 oz BMI 35.6 BP 140/88 H Blood Pressure Location Lt brachial Position Sitting Pulse 86 Pulse Source Pulse Oximeter Pulse Oximetry (%) 97 Oxygen Delivery Method Room Air Intake Visit Reasons: 6m Allergies shellfish derived [SHELLFISH DERIVED] Allergy (Unknown, Verified 07/22/23 14:40) HIVES Medication List - Last Reconciled 07/22/23 by Carrol Stafford MD albuterol sulfate 90 mcg/actuation 2 puffs PO Q4H PRN 30 days albuterol sulfate 90 mcg/actuation (Ventolin HFA) 1 inh inhalation QID PRN 30 days blood sugar diagnostic (FreeStyle Lite Strips) Patient to take fasting blood sugar once daily blood-glucose meter (FreeStyle Lite Meter kit) Patient to take fasting blood sugar once daily cetirizine 10 mg PO DAILY 90 days epinephrine (EpiPen) 0.3 mg (0.3 mL) IM Q10M PRN 90 days glipizide-metformin 5-500 mg 1 tab PO BID 90 days lancets (FreeStyle Lancets) patient to take fasting blood sugar once daily losartan-hydrochlorothiazide 50-12.5 mg 1 tab PO DAILY 90 days pioglitazone 45 mg PO DAILY 90 days Tobacco use date assessed: 07/22/23 Dental Screening Dental Screen Date: 07/22/23 Did you have a dental visit in the last 12 months?: Yes Did you have a dental problem in the last 6 months where you did not have access to dental care?: No Was dental information given to patient?: Patient has dentist HPI 6m HPI Details Patient is a 42-year-old gentleman came in today for his regular follow-up appointment He was last seen December of last year patient lost his insurance after and could not come in for follow-up in April he tells me Diabetes mellitus: He is taking glipizide metformin b.i.d. 12 hours apart and pioglitazone 45 mg once a day He had labs done early today we do not have the report yet Blood pressure is slightly elevated today patient is on losartan hydrochlorothiazide 50-12.5 mg no side effects. He would call me with blood pressure readings in 7 days from home Continue gemfibrozil 600 mg for lipid control Seasonal allergies: Patient is on albuterol inhaler as needed, patient is taking long-acting antihistamine. Follow-up early October [facility] Medical History LFT elevation Impaired fasting blood sugar Environmental allergies Asthma, mild Surgical History No pertinent past surgical history Family History Father Unknown family medical history Mother HTN (hypertension) Diabetes mellitus High cholesterol Daughter No problems noted. Daughter No problems noted. Daughter No problems noted. Social History Housing: House Alcohol intake: never Patient Tobacco Use Status: Former Tobacco user Quit Date: quit 17 years ago Tobacco use type: Cigarette Years Smoked: 12 e-Cigarette/Vaping Use: Never Used Substance Use Type: Marijuana Current occupational status: unemployed and student Cognitive needs: No Hearing needs: No Vision needs: No Questionnaire Thrive Questionnaire Date Thrive assessed: 01/21/23 AUDIT C Alcohol Use Questionnaire (AUDIT-C) 1. How often do you have a drink containing alcohol?: Monthly or less 2. How many drinks containing alcohol do you have on a typical day when you are drinking?: 1 or 2 3. How often do you have six or more drinks on one occasion?: Never Total Score: 1 Score Reviewed/Action Taken: Yes SALIMA-7 AMB Questionnaire SALIMA-7 Date SALIMA - 7 assessed: 01/21/23 Source: Developed by Drs. Brock Gusman, Carly Valverde, Rolly Santos and colleagues, with an educational fartun from [employer]. Review of Systems Const Denies chills and Denies fever(s) ENT Denies epistaxis and Denies nasal discharge Card Denies chest pain Resp Denies chest congestion, Denies cough and Denies hemoptysis GI Denies diarrhea and Denies nausea Skin/Breast Denies rash Neuro Reports no additional complaints Psych Reports no additional complaints Endo Reports no additional complaints Physical exam (Primary Care) Vital Signs: Last Vital Signs Pulse 86 07/22/23 14:40 BP 140/88 H 07/22/23 14:40 Pulse Ox 97 07/22/23 14:40 Oxygen Delivery Method Room Air 07/22/23 14:40 BMI result Body Mass Index 35.6 Tobacco/Smoking Status: Tobacco use Status Tobacco use date assessed 07/22/23 07/22/23 14:43 Patient Tobacco Use Status Former Tobacco user 07/22/23 14:43 Tobacco use type Cigarette 07/22/23 14:43 e-Cigarette/Vaping Use Never Used 07/22/23 14:43 Thrive Assessment: Date of Thrive Assessment Date Thrive assessed 01/21/23 07/22/23 14:43 Const General: cooperative, comfortable and no acute distress Orientation/consciousness: patient oriented x3 HENMT Head: Yes normocephalic Eyes General: appearance normal, both eyes and all related structures Neck Neck: Yes supple Resp Effort & Inspection: normal respiratory effort, no cough and no stridor Cardio Rhythm: regular rhythm Heart sounds: S1 normal heart sound present and S2 normal heart sound present Skin General skin exam: turgor normal Neuro General: patient oriented x3, tone normal and moves all extremities Extrem Right lower extremity: no edema Left lower extremity: no edema Assessment and Plan Assessment & Plan (1) Type 2 diabetes mellitus: Code(s): E11.9 - Type 2 diabetes mellitus without complications Qualifiers: Diabetes mellitus complication status: without complication Diabetes mellitus custodial insulin use: without superintendent container terminal use Qualified Code(s): E11.9 - Type 2 diabetes mellitus without complications (2) Hypertension, essential: Code(s): I10 - Essential (primary) hypertension (3) Lipid disorder: Code(s): E78.9 - Disorder of lipoprotein metabolism, unspecified (4) Environmental allergies: Code(s): Z91.09 - Other allergy status, other than to drugs and biological substances (5) Asthma, mild: Code(s): J45.909 - Unspecified asthma, uncomplicated Qualifiers: Asthma complication type: uncomplicated Asthma persistence: intermittent Qualified Code(s): J45.20 - Mild intermittent asthma, uncomplicated (6) Shellfish allergy: Code(s): Z91.013 - Allergy to seafood (7) Seasonal asthma: Code(s): J45.998 - Other asthma (8) LFT elevation: Code(s): R79.89 - Other specified abnormal findings of blood chemistry (9) High triglycerides: Code(s): E78.1 - Pure hyperglyceridemia Plan Patient is a 42-year-old gentleman came in today for his regular follow-up appointment He was last seen December of last year patient lost his insurance after and could not come in for follow-up in April he tells me Diabetes mellitus: He is taking glipizide metformin b.i.d. 12 hours apart and pioglitazone 45 mg once a day He had labs done early today we do not have the report yet Blood pressure is slightly elevated today patient is on losartan hydrochlorothiazide 50-12.5 mg no side effects. He would call me with blood pressure readings in 7 days from home Continue gemfibrozil 600 mg for lipid control Seasonal allergies: Patient is on albuterol inhaler as needed, patient is taking long-acting antihistamine. Follow-up early October Coding Level of Care Code Est Pt Level 4 (16354) Diagnoses Type 2 diabetes mellitus without complication, without long-term current use of insulin E11.9 Diabetes mellitus complication status: without complication Diabetes mellitus superintendent container terminal insulin use: without superintendent container terminal use Hypertension, essential I10 Lipid disorder E78.9 Environmental allergies Z91.09 Mild intermittent asthma without complication J45.20 Asthma complication type: uncomplicated Asthma persistence: intermittent Shellfish allergy Z91.013 Seasonal asthma J45.998 LFT elevation R79.89 High triglycerides E78.1
== END 2023-07-22 15:07 | disposition home or self-care (01) ==
PROVIDERS: PCP Internal Medicine; Visit Provider Internal Medicine
DX: E11.9 Type 2 diabetes mellitus without complications (principal); I10 Essential (primary) hypertension; E78.9 Disorder of lipoprotein metabolism, unspecified; Z91.09 Other allergy status, other than to drugs and biological substances; J45.20 Mild intermittent asthma, uncomplicated; Z91.013 Allergy to seafood; J45.998 Other asthma; R79.89 Other specified abnormal findings of blood chemistry; E78.1 Pure hyperglyceridemia
CPT/HCPCS: 99214

== ENCOUNTER 2023-11-28 14:11 | Outpatient (AMB) | payer OTHER, SELFPAY ==
[2023-11-28 14:21] VITALS: BP 136/84; PULSE 83; O2SAT 96; BMI 34.2
--- NOTE | 2023-11-28 14:21 | MHC.PC.OV ---
Vital Signs 11/28/23 14:21 Height 5 ft 7 in Weight 218 lb 2 oz BMI 34.2 BP 136/84 Blood Pressure Location Lt brachial Position Sitting Pulse 83 Pulse Source Pulse Oximeter Pulse Oximetry (%) 96 Oxygen Delivery Method Room Air Intake Visit Reasons: F/U meds missed appt 10/31/23 no insurance Allergies shellfish derived [SHELLFISH DERIVED] Allergy (Unknown, Verified 11/28/23 14:23) HIVES Medication List - Last Reconciled 11/28/23 by Carrol Stafford MD albuterol sulfate 90 mcg/actuation 2 puffs PO Q4H PRN 30 days albuterol sulfate 90 mcg/actuation (Ventolin HFA) 1 inh inhalation QID PRN 30 days blood sugar diagnostic (FreeStyle Lite Strips) Patient to take fasting blood sugar once daily blood-glucose meter (FreeStyle Lite Meter kit) Patient to take fasting blood sugar once daily cetirizine 10 mg PO DAILY 90 days epinephrine (EpiPen) 0.3 mg (0.3 mL) IM Q10M PRN 90 days glipizide-metformin 5-500 mg 1 tab PO BID 90 days lancets (FreeStyle Lancets) patient to take fasting blood sugar once daily losartan-hydrochlorothiazide 50-12.5 mg 1 tab PO DAILY 90 days pioglitazone 45 mg PO DAILY 90 days Tobacco use date assessed: 11/28/23 Dental Screening Dental Screen Date: 11/28/23 Did you have a dental visit in the last 12 months?: Yes Did you have a dental problem in the last 6 months where you did not have access to dental care?: No Was dental information given to patient?: Patient has dentist HPI F/U meds missed appt 10/31/23 no insurance HPI Details Patient is a 42-year-old gentleman came in today for his regular follow-up appointment Offers no complaint Diabetes mellitus: He is taking glipizide metformin b.i.d. 12 hours apart and pioglitazone 45 mg once a day Labs are due Continue diet-controlled as well Hypertension: Blood pressure is stable with losartan hydrochlorothiazide 50-12.5 mg no side effects. No side effects Continue gemfibrozil 600 mg for lipid control Seasonal allergies: Patient is on albuterol inhaler as needed, patient is taking long-acting antihistamine. Follow-up 3 months COUNTS INCLUDE 234 BEDS AT [facility] Medical History LFT elevation Impaired fasting blood sugar Environmental allergies Asthma, mild Surgical History No pertinent past surgical history Family History Father Unknown family medical history Mother HTN (hypertension) Diabetes mellitus High cholesterol Daughter No problems noted. Daughter No problems noted. Daughter No problems noted. Social History Housing: House Alcohol intake: never Patient Tobacco Use Status: Former Tobacco user Tobacco use type: Cigarette Years Smoked: 12 e-Cigarette/Vaping Use: Never Used Substance Use Type: Marijuana Current occupational status: unemployed and student Cognitive needs: No Hearing needs: No Vision needs: No Questionnaire PHQ-9 Over the last 2 weeks, how often have you been bothered by any of the following problems? 1. Little interest or pleasure in doing things: not at all 2. Feeling down, depressed, or hopeless: not at all 3. Trouble falling or staying asleep, or sleeping too much: not at all 4. Feeling tired or having little energy: not at all 5. Poor appetite or overeating: not at all 6. Feeling bad about yourself - or that you are a failure or have let yourself or your family down: not at all 7. Trouble concentrating on things, such as reading the newspaper or watching television: not at all 8. Moving or speaking so slowly that other people could have noticed. Or the opposite - being so fidgety or restless that you have been moving around a lot more than usual: not at all 9. Thoughts that you would be better off or of hurting yourself in some way: not at all Total score: 0 Depression Screening Interpretation: Negative Depression Screening Done: Yes 62678 - PHQ-9 Billing: Yes Source: Developed by Drs. Brock Gusman, Carly Valverde, Rolly Santos and colleagues, with an educational fartun from [employer]. Thrive Questionnaire Date Thrive assessed: 01/21/23 AUDIT C Alcohol Use Questionnaire (AUDIT-C) 1. How often do you have a drink containing alcohol?: Monthly or less 2. How many drinks containing alcohol do you have on a typical day when you are drinking?: 1 or 2 3. How often do you have six or more drinks on one occasion?: Never Total Score: 1 Score Reviewed/Action Taken: Yes SALIMA-7 AMB Questionnaire SALIMA-7 Date SALIMA - 7 assessed: 01/21/23 Source: Developed by Drs. Brock Gusman, Carly Valverde, Rolly Santos and colleagues, with an educational fartun from [employer]. Review of Systems Const Denies chills and Denies fever(s) ENT Denies epistaxis and Denies nasal discharge Card Denies chest pain Resp Denies chest congestion, Denies cough and Denies hemoptysis GI Denies diarrhea and Denies nausea Skin/Breast Denies rash Neuro Reports no additional complaints Psych Reports no additional complaints Endo Reports no additional complaints Physical exam (Primary Care) Vital Signs: Last Vital Signs Pulse 83 11/28/23 14:21 BP 136/84 11/28/23 14:21 Pulse Ox 96 11/28/23 14:21 Oxygen Delivery Method Room Air 11/28/23 14:21 BMI result Body Mass Index 34.2 Tobacco/Smoking Status: Tobacco use Status Tobacco use date assessed 11/28/23 11/28/23 14:24 Patient Tobacco Use Status Former Tobacco user 11/28/23 14:24 Tobacco use type Cigarette 11/28/23 14:24 e-Cigarette/Vaping Use Never Used 11/28/23 14:24 Depression Screening Interpretation: Negative Thrive Assessment: Date of Thrive Assessment Date Thrive assessed 01/21/23 11/28/23 14:24 Const General: cooperative, comfortable and no acute distress Orientation/consciousness: patient oriented x3 HENTN Head: Yes normocephalic Eyes General: appearance normal, both eyes and all related structures Neck Neck: Yes supple Resp Effort & Inspection: normal respiratory effort, no cough and no stridor Cardio Rhythm: regular rhythm Heart sounds: S1 normal heart sound present and S2 normal heart sound present Skin General skin exam: turgor normal Neuro General: patient oriented x3, tone normal and moves all extremities Extrem Right lower extremity: no edema Left lower extremity: no edema Assessment and Plan Assessment & Plan (1) Hypertension, essential: Code(s): I10 - Essential (primary) hypertension (2) Type 2 diabetes mellitus: Code(s): E11.9 - Type 2 diabetes mellitus without complications Qualifiers: Diabetes mellitus complication status: without complication Diabetes mellitus senior care insulin use: without senior care use Qualified Code(s): E11.9 - Type 2 diabetes mellitus without complications (3) Lipid disorder: Code(s): E78.9 - Disorder of lipoprotein metabolism, unspecified (4) Seasonal asthma: Code(s): J45.998 - Other asthma (5) LFT elevation: Code(s): R79.89 - Other specified abnormal findings of blood chemistry (6) Environmental allergies: Code(s): Z91.09 - Other allergy status, other than to drugs and biological substances (7) Anemia: Code(s): D64.9 - Anemia, unspecified Qualifiers: Anemia type: other cause Other causes of anemia: chronic disease, other Qualified Code(s): D63.8 - Anemia in other chronic diseases classified elsewhere (8) Asthma, mild: Code(s): J45.909 - Unspecified asthma, uncomplicated Qualifiers: Asthma persistence: intermittent Asthma complication type: uncomplicated Qualified Code(s): J45.20 - Mild intermittent asthma, uncomplicated (9) Shellfish allergy: Code(s): Z91.013 - Allergy to seafood (10) High triglycerides: Code(s): E78.1 - Pure hyperglyceridemia Plan Patient is a 42-year-old gentleman came in today for his regular follow-up appointment Offers no complaint Diabetes mellitus: He is taking glipizide metformin b.i.d. 12 hours apart and pioglitazone 45 mg once a day Labs are due Continue diet-controlled as well Hypertension: Blood pressure is stable with losartan hydrochlorothiazide 50-12.5 mg no side effects. No side effects Continue gemfibrozil 600 mg for lipid control Seasonal allergies: Patient is on albuterol inhaler as needed, patient is taking long-acting antihistamine. Follow-up 3 months Orders: Orders Microalbumin, Random (w Creat) Today E11.9 - Type 2 diabetes mellitus without complications, E78.9 - Disorder of lipoprotein metabolism, unspecified, I10 - Essential (primary) hypertension, J45.998 - Other asthma, R79.89 - Other specified abnormal findings of blood chemistry, Z91.09 - Other allergy status, other than to drugs and biological substances Complete Blood Count Auto Diff Today D64.9 - Anemia, unspecified Hemoglobin A1c Today E11.9 - Type 2 diabetes mellitus without complications, E78.9 - Disorder of lipoprotein metabolism, unspecified, I10 - Essential (primary) hypertension, J45.998 - Other asthma, R79.89 - Other specified abnormal findings of blood chemistry, Z91.09 - Other allergy status, other than to drugs and biological substances Comprehensive Met. Panel Today E11.9 - Type 2 diabetes mellitus without complications, E78.9 - Disorder of lipoprotein metabolism, unspecified, I10 - Essential (primary) hypertension, J45.998 - Other asthma, R79.89 - Other specified abnormal findings of blood chemistry, Z91.09 - Other allergy status, other than to drugs and biological substances LDL Cholesterol Direct Today E11.9 - Type 2 diabetes mellitus without complications, E78.9 - Disorder of lipoprotein metabolism, unspecified, I10 - Essential (primary) hypertension, J45.998 - Other asthma, R79.89 - Other specified abnormal findings of blood chemistry, Z91.09 - Other allergy status, other than to drugs and biological substances Medications: Refilled glipizide-metformin 5-500 mg 1 tab PO BID 180 tabs 0RF Diabetes 90 days losartan-hydrochlorothiazide 50-12.5 mg 1 tab PO DAILY 90 tabs 0RF 90 days pioglitazone 45 mg PO DAILY 90 tabs 1RF 90 days Coding Level of Care Code Est Pt Level 4 (92909) Complex EM visit Add On G2211 Diagnoses Hypertension, essential I10 Type 2 diabetes mellitus without complication, without long-term current use of insulin E11.9 Diabetes mellitus complication status: without complication 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
== END 2023-11-28 14:36 | disposition home or self-care (01) ==
PROVIDERS: PCP Internal Medicine; Visit Provider Internal Medicine
DX: I10 Essential (primary) hypertension (principal); E11.9 Type 2 diabetes mellitus without complications; E78.9 Disorder of lipoprotein metabolism, unspecified; J45.998 Other asthma; R79.89 Other specified abnormal findings of blood chemistry; Z91.09 Other allergy status, other than to drugs and biological substances; D63.8 Anemia in other chronic diseases classified elsewhere; J45.20 Mild intermittent asthma, uncomplicated; Z91.013 Allergy to seafood; E78.1 Pure hyperglyceridemia
CPT/HCPCS: 99214; G2211

== ENCOUNTER 2023-11-28 14:38 | Outpatient (REF) | payer OTHER, SELFPAY ==
[2023-11-28 16:04] LABS: MANUAL DIFF FLAG NO
[2023-11-28 16:16] LABS: Basophils Absolute Auto 0.1 X10*3/uL (0.0-0.2); Basophils Percent Auto 0.5 % (0-2); Eosinophils Absolute Auto 0.1 X10*3/uL (0.0-0.4); Eosinophils Percent Auto 1.3 % (0-4); Hematocrit 37.9 % (42.0-52.0); Hemoglobin 13.1 g/dl (14.0-18.0); Imm Gran Abs Auto 0.02 X10*3/uL (0.00-0.03); Imm Gran Pct Auto 0.2 % (0.0-0.4); Lymphocytes Absolute Auto 3.3 X10*3/uL (1.2-4.9); Lymphocytes Percent Auto 35.2 % (20-40); Mean Corpuscular HGB Conc 34.6 g/dl (31.0-36.0); Mean Corpuscular Hemoglobin 30.8 pg (27.0-33.0); Mean Platelet Volume 10.4 fL (9.4-12.4); Monocytes Absolute Auto 0.8 X10*3/uL (0.1-1.2); Monocytes Percent Auto 8.1 % (2-11); Neutrophils Absolute Auto 5.2 x10*3/uL (2.0-8.3); Neutrophils Percent Auto 54.7 % (45-73); Platelet Count 267 X10*3/uL (160-400); Red Blood Count 4.26 X10*6/uL (4.60-5.80); Red Cell Distribution Width 12.6 % (11.0-16.0); White Blood Count 9.4 X10*3/uL (4.8-10.8)
[2023-11-28 16:20] LABS: Estimated Average Glucose 143 mg/dL; Hemoglobin A1c % 6.6 % (<6.0)
[2023-11-28 16:26] LABS: Alanine Aminotransferase 72 U/L (0-40); Albumin Level 4.5 g/dL (3.5-5.0); Alkaline Phosphatase 48 U/L (39-117); Anion Gap 13 (12-20); Aspartate Amino Transferase 44 U/L (5-37); Blood Urea Nitrogen 16 mg/dL (9-16); Calcium 9.9 mg/dL (8.4-10.2); Carbon Dioxide 26 mmol/L (22-29); Chloride 102 mmol/L (96-108); Estimated Glomerular Filt Rate > 60; Glucose Random 100 mg/dL (60-115); Potassium 3.2 mmol/L (3.3-5.1); Sodium 138 mmol/L (135-145); Total Protein 7.7 g/dL (6.5-8.0)
[2023-11-28 18:27] LABS: Creatinine Urine 128.33 mg/dL; Microalbum/Creatinine Ratio Ur 4.6 ug/mg cr (<30)
[2023-11-29 14:18] LABS: LDL Cholesterol Direct 104 mg/dL (<100)
== END 2023-11-28 14:39 | disposition home or self-care (01) ==
LOC: HO.HMGCLDS 14:38
PROVIDERS: PCP Internal Medicine; Visit Provider Internal Medicine
DX: I10 Essential (primary) hypertension (principal); E11.9 Type 2 diabetes mellitus without complications; E78.9 Disorder of lipoprotein metabolism, unspecified; J45.998 Other asthma; R79.89 Other specified abnormal findings of blood chemistry; Z91.09 Other allergy status, other than to drugs and biological substances; D64.9 Anemia, unspecified
CPT/HCPCS: 36415; 80053; 82043; 82570; 83036; 83721; 85025

== ENCOUNTER 2024-02-10 10:41 | Outpatient (REF) | payer OTHER, SELFPAY ==
[2024-02-10 13:21] LABS: MANUAL DIFF FLAG NO
[2024-02-10 13:26] LABS: Basophils Absolute Auto 0.1 X10*3/uL (0.0-0.2); Basophils Percent Auto 0.5 % (0-2); Eosinophils Absolute Auto 0.2 X10*3/uL (0.0-0.4); Eosinophils Percent Auto 1.7 % (0-4); Hematocrit 40.1 % (42.0-52.0); Hemoglobin 13.3 g/dl (14.0-18.0); Imm Gran Abs Auto 0.03 X10*3/uL (0.00-0.03); Imm Gran Pct Auto 0.3 % (0.0-0.4); Lymphocytes Percent Auto 32.6 % (20-40); Mean Corpuscular HGB Conc 33.2 g/dl (31.0-36.0); Mean Corpuscular Hemoglobin 30.1 pg (27.0-33.0); Mean Corpuscular Volume 90.7 fL (80.0-98.0); Mean Platelet Volume 11.1 fL (9.4-12.4); Monocytes Absolute Auto 0.8 X10*3/uL (0.1-1.2); Monocytes Percent Auto 8.2 % (2-11); Neutrophils Absolute Auto 5.2 x10*3/uL (2.0-8.3); Neutrophils Percent Auto 56.7 % (45-73); Platelet Count 181 X10*3/uL (160-400); Red Blood Count 4.42 X10*6/uL (4.60-5.80); White Blood Count 9.2 X10*3/uL (4.8-10.8)
[2024-02-10 13:49] LABS: Alanine Aminotransferase 45 U/L (0-40); Albumin Level 4.5 g/dL (3.5-5.0); Alkaline Phosphatase 46 U/L (39-117); Anion Gap 13 (12-20); Aspartate Amino Transferase 36 U/L (5-37); Bilirubin Total 0.7 mg/dL (0.0-1.0); Blood Urea Nitrogen 23 mg/dL (9-16); Calcium 9.8 mg/dL (8.4-10.2); Carbon Dioxide 25 mmol/L (22-29); Chloride 103 mmol/L (96-108); Estimated Glomerular Filt Rate > 60; Glucose Random 149 mg/dL (60-115); Potassium 3.5 mmol/L (3.3-5.1); Sodium 137 mmol/L (135-145); Total Protein 7.5 g/dL (6.5-8.0)
== END 2024-02-10 10:42 | disposition home or self-care (01) ==
LOC: HO.HMGCLDS 10:41
PROVIDERS: PCP Internal Medicine; Visit Provider Internal Medicine
DX: I10 Essential (primary) hypertension (principal); D63.8 Anemia in other chronic diseases classified elsewhere
CPT/HCPCS: 36415; 80053; 85025

== ENCOUNTER 2024-02-10 15:08 | Outpatient (AMB) | payer OTHER, SELFPAY ==
--- NOTE | 2024-02-10 15:10 | MHC.PC.OV ---
Vital Signs 02/10/24 15:11 Height 5 ft 7 in Weight 205 lb 8 oz BMI 32.2 BP 132/86 Blood Pressure Location Rt brachial Position Sitting Pulse 80 Pulse Source Pulse Oximeter Pulse Oximetry (%) 98 Oxygen Delivery Method Room Air Intake Visit Reasons: 3 month f/u Allergies shellfish derived [SHELLFISH DERIVED] Allergy (Unknown, Verified 02/10/24 15:11) HIVES Medication List - Last Reconciled 02/10/24 by Carrol Stafford MD albuterol sulfate 90 mcg/actuation 2 puffs PO Q4H PRN 30 days albuterol sulfate 90 mcg/actuation (Ventolin HFA) 1 inh inhalation QID PRN 30 days blood sugar diagnostic (FreeStyle Lite Strips) Patient to take fasting blood sugar once daily blood-glucose meter (FreeStyle Lite Meter kit) Patient to take fasting blood sugar once daily cetirizine 10 mg PO DAILY 90 days epinephrine (EpiPen) 0.3 mg (0.3 mL) IM Q10M PRN 90 days glipizide-metformin 5-500 mg 1 tab PO BID 90 days lancets (FreeStyle Lancets) patient to take fasting blood sugar once daily losartan-hydrochlorothiazide 50-12.5 mg 1 tab PO DAILY 90 days pioglitazone 45 mg PO DAILY 90 days Tobacco use date assessed: 02/10/24 Dental Screening Dental Screen Date: 02/10/24 Did you have a dental visit in the last 12 months?: Yes Did you have a dental problem in the last 6 months where you did not have access to dental care?: No Was dental information given to patient?: Patient has dentist HPI 3 month f/u HPI Details Patient is a 43-year-old gentleman came in today for his regular follow-up appointment Offers no complaint, except feeling dizzy few days ago, patient stopped taking his allergy medication He has restarted that from yesterday On examination his left ear is slightly erythematous, however patient is asymptomatic as far as his ear is concerned His dizziness is better as well Diabetes mellitus: He is taking glipizide metformin b.i.d. 12 hours apart and pioglitazone 45 mg once a day Last hemoglobin A1c was checked and of October, patient will have another set of lab before next visit Continue diet-controlled as well Hypertension: Blood pressure is stable with losartan hydrochlorothiazide 50-12.5 mg no side effects. No side effects Continue gemfibrozil 600 mg for lipid control Follow-up 3 months [facility] Medical History LFT elevation Impaired fasting blood sugar Environmental allergies Asthma, mild Surgical History No pertinent past surgical history Family History Father Unknown family medical history Mother HTN (hypertension) Diabetes mellitus High cholesterol Daughter No problems noted. Daughter No problems noted. Daughter No problems noted. Social History Housing: House Alcohol intake: never Patient Tobacco Use Status: Former Tobacco user Tobacco use type: Cigarette Years Smoked: 12 e-Cigarette/Vaping Use: Never Used Substance Use Type: Marijuana service: No Current occupational status: unemployed and student Cognitive needs: No Hearing needs: No Vision needs: No Questionnaire PHQ-9 Over the last 2 weeks, how often have you been bothered by any of the following problems? 1. Little interest or pleasure in doing things: not at all 2. Feeling down, depressed, or hopeless: not at all 3. Trouble falling or staying asleep, or sleeping too much: not at all 4. Feeling tired or having little energy: not at all 5. Poor appetite or overeating: not at all 6. Feeling bad about yourself - or that you are a failure or have let yourself or your family down: not at all 7. Trouble concentrating on things, such as reading the newspaper or watching television: not at all 8. Moving or speaking so slowly that other people could have noticed. Or the opposite - being so fidgety or restless that you have been moving around a lot more than usual: not at all 9. Thoughts that you would be better off or of hurting yourself in some way: not at all Total score: 0 Depression Screening Interpretation: Negative Depression Screening Done: Yes 25256 - PHQ-9 Billing: Yes Source: Developed by Drs. Brock Gusman, Carly Valverde, Rolly Santos and colleagues, with an educational fartun from [employer]. Thrive Questionnaire Date Thrive assessed: 02/10/24 I am a: Patient What is your living situation today?: I have a steady place to live Within the past 12 months, did the food you bought not last and you didn't have the money to get more?: I choose not to answer this question Within the past 12 months, did you worry whether your food would run out before you got money to buy more?: Never true Do you have trouble paying for medicines?: I choose not to answer this question Do you have trouble getting transportation to medical appointments?: No Do you have trouble paying your heating and electricity bill?: I choose not to answer this question Do you have trouble taking care of your child, family member or friend?: No Do you have trouble with day-to-day activities such as bathing, preparing meals, shopping, managing finances, etc.?: No Are you currently unemployed and looking for a job?: Yes Are you interested in more education?: No Please select the resources that you would like help with: None Currently or been in a relationship where the following occur: No concerns reported THRIVE Score: 0 AUDIT C Alcohol Use Questionnaire (AUDIT-C) 1. How often do you have a drink containing alcohol?: Monthly or less 2. How many drinks containing alcohol do you have on a typical day when you are drinking?: 1 or 2 3. How often do you have six or more drinks on one occasion?: Never Total Score: 1 Score Reviewed/Action Taken: Yes SALIMA-7 AMB Questionnaire SALIMA-7 Date SALIMA - 7 assessed: 02/10/24 Feeling nervous, anxious, or on edge: 0 = Not at all Not being able to stop or control worryin = Not at all Worrying too much about different things: 0 = Not at all Trouble relaxin = Not at all Being so restless that it is hard to sit still: 0 = Not at all Becoming easily annoyed or irritable: 0 = Not at all Feeling afraid as if something awful might happen: 0 = Not at all Total SALIMA-7 score (0-4 normal; 5-9 mild; 10-14 moderate; 15-21 severe): 0 Source: Developed by Drs. Brock Gusman, Carly Valverde, Rolly Santos and colleagues, with an educational fartun from [employer]. SALIMA-7 Assessment Billing SALIMA-7 Assessment Tool: SALIMA-7 Assessment 46404 Review of Systems Const Denies chills and Denies fever(s) ENT Denies epistaxis and Denies nasal discharge Card Denies chest pain Resp Denies chest congestion, Denies cough and Denies hemoptysis GI Denies diarrhea and Denies nausea Skin/Breast Denies rash Neuro Reports no additional complaints Psych Reports no additional complaints Endo Reports no additional complaints Physical exam (Primary Care) Vital Signs: Last Vital Signs Pulse 80 02/10/24 15:11 BP 132/86 02/10/24 15:11 Pulse Ox 98 02/10/24 15:11 Oxygen Delivery Method Room Air 02/10/24 15:11 BMI result Body Mass Index 32.2 Tobacco/Smoking Status: Tobacco use Status Tobacco use date assessed 02/10/24 02/10/24 15:14 Patient Tobacco Use Status Former Tobacco user 02/10/24 15:14 Tobacco use type Cigarette 02/10/24 15:14 e-Cigarette/Vaping Use Never Used 02/10/24 15:14 PHQ-9: PHQ-9 Score PHQ-9: Total score 0 02/10/24 15:35 Depression Screening Interpretation: Negative Thrive Assessment: Date of Thrive Assessment Date Thrive assessed 02/10/24 02/10/24 15:14 Currently or been in a relationship where the following occur: No concerns reported Const General: cooperative, comfortable and no acute distress Orientation/consciousness: patient oriented x3 HENMT Head: Yes normocephalic Eyes General: appearance normal, both eyes and all related structures Neck Neck: Yes supple Resp Effort & Inspection: normal respiratory effort, no cough and no stridor Cardio Rhythm: regular rhythm Heart sounds: S1 normal heart sound present and S2 normal heart sound present Skin General skin exam: turgor normal Neuro General: patient oriented x3, tone normal and moves all extremities Extrem Right lower extremity: no edema Left lower extremity: no edema Assessment and Plan Assessment & Plan (1) Type 2 diabetes mellitus: Code(s): E11.9 - Type 2 diabetes mellitus without complications Qualifiers: Diabetes mellitus complication status: without complication 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 Qualified Code(s): E11.9 - Type 2 diabetes mellitus without complications (2) Hypertension, essential: Code(s): I10 - Essential (primary) hypertension (3) Lipid disorder: Code(s): E78.9 - Disorder of lipoprotein metabolism, unspecified (4) Seasonal asthma: Code(s): J45.998 - Other asthma (5) Environmental allergies: Code(s): Z91.09 - Other allergy status, other than to drugs and biological substances (6) Shellfish allergy: Code(s): Z91.013 - Allergy to seafood (7) High triglycerides: Code(s): E78.1 - Pure hyperglyceridemia Plan Patient is a 43-year-old gentleman came in today for his regular follow-up appointment Offers no complaint, except feeling dizzy few days ago, patient stopped taking his allergy medication He has restarted that from yesterday On examination his left ear is slightly erythematous, however patient is asymptomatic as far as his ear is concerned His dizziness is better as well Diabetes mellitus: He is taking glipizide metformin b.i.d. 12 hours apart and pioglitazone 45 mg once a day Last hemoglobin A1c was checked and of October, patient will have another set of lab before next visit Continue diet-controlled as well Hypertension: Blood pressure is stable with losartan hydrochlorothiazide 50-12.5 mg no side effects. No side effects Continue gemfibrozil 600 mg for lipid control Follow-up 3 months Orders: Orders Hemoglobin A1c 3 Months E11.9 - Type 2 diabetes mellitus without complications, I10 - Essential (primary) hypertension Complete Blood Count Auto Diff 3 Months E11.9 - Type 2 diabetes mellitus without complications, I10 - Essential (primary) hypertension Comprehensive Met. 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
[2024-02-10 15:11] VITALS: BP 132/86; PULSE 80; O2SAT 98; BMI 32.2
== END 2024-02-10 15:37 | disposition home or self-care (01) ==
PROVIDERS: PCP Internal Medicine; Visit Provider Internal Medicine
DX: E11.9 Type 2 diabetes mellitus without complications (principal); I10 Essential (primary) hypertension; E78.9 Disorder of lipoprotein metabolism, unspecified; J45.998 Other asthma; Z91.09 Other allergy status, other than to drugs and biological substances; Z91.013 Allergy to seafood; E78.1 Pure hyperglyceridemia
CPT/HCPCS: 99214

== ENCOUNTER 2024-04-22 06:06 | Outpatient (REF) | payer OTHER, SELFPAY ==
[2024-04-22 10:51] LABS: Appearance Urine Clear; Color Urine Yellow; Glucose Urine UA Negative (Negative); Leukocyte Esterase Urine Negative (Negative); Nitrite Urine Negative (Negative); Specific Gravity - Urine 1.025 (1.005-1.025); Urine Blood Negative (Negative); Urine Ketones Negative (Negative); Urine Protein Negative (Neg-Trace)
== END 2024-04-22 06:07 | disposition home or self-care (01) ==
LOC: HO.HMGCLDS 06:06
PROVIDERS: PCP Internal Medicine; Visit Provider Internal Medicine
DX: R35.0 Frequency of micturition (principal)
CPT/HCPCS: 81003

== ENCOUNTER 2024-04-23 14:57 | Outpatient (AMB) | payer OTHER, SELFPAY ==
--- NOTE | 2024-04-23 14:58 | A.OFFPC_ITS ---
Intake Visit Reasons: Results Allergies shellfish derived [SHELLFISH DERIVED] Allergy (Unknown, Verified 02/10/24 15:11) HIVES Medication List - Last Reconciled 04/23/24 by Carrol Stafford MD albuterol sulfate 90 mcg/actuation 2 puffs PO Q4H PRN 30 days albuterol sulfate 90 mcg/actuation (Ventolin HFA) 1 inh inhalation QID PRN 30 days blood sugar diagnostic (FreeStyle Lite Strips) Patient to take fasting blood sugar once daily blood-glucose meter (FreeStyle Lite Meter kit) Patient to take fasting blood sugar once daily cetirizine 10 mg PO DAILY 90 days epinephrine (EpiPen) 0.3 mg (0.3 mL) IM Q10M PRN 90 days glipizide-metformin 5-500 mg 1 tab PO BID 90 days lancets (FreeStyle Lancets) patient to take fasting blood sugar once daily losartan-hydrochlorothiazide 50-12.5 mg 1 tab PO DAILY 90 days pioglitazone 45 mg PO DAILY 90 days Tobacco use date assessed: 02/10/24 Dental Screening Dental Screen Date: 02/10/24 HPI Results HPI Details This is a telemedicine visit Patient has been having frequency of urination Getting up at night to go to bathroom 3 times We did urinalysis which came back clean There is no signs of infection or uncontrolled sugar I am starting him on Flomax, I have placed a referral for Urology as well Review system reveals no nausea no vomiting no fever no chills no abdominal pain just a feeling of fullness suprapubic There is no pain around the scrotal area as well. No penile discharge PFSH Medical History LFT elevation Impaired fasting blood sugar Environmental allergies Asthma, mild Surgical History No pertinent past surgical history Family History Father Unknown family medical history Mother HTN (hypertension) Diabetes mellitus High cholesterol Daughter No problems noted. Daughter No problems noted. Daughter No problems noted. Social History Housing: House Alcohol intake: never Patient Tobacco Use Status: Former Tobacco user Tobacco use type: Cigarette Years Smoked: 12 e-Cigarette/Vaping Use: Never Used Substance Use Type: Marijuana service: No Current occupational status: unemployed and student Cognitive needs: No Hearing needs: No Vision needs: No Questionnaire Thrive Questionnaire Date Thrive assessed: 02/10/24 AUDIT C Alcohol Use Questionnaire (AUDIT-C) 1. How often do you have a drink containing alcohol?: Monthly or less 2. How many drinks containing alcohol do you have on a typical day when you are drinking?: 1 or 2 3. How often do you have six or more drinks on one occasion?: Never Total Score: 1 Score Reviewed/Action Taken: Yes SALIMA-7 AMB Questionnaire SALIMA-7 Date SALIMA - 7 assessed: 02/10/24 Source: Developed by Drs. Brock Gusman, Carly Valverde, Rolly Santos and colleagues, with an educational fartun from [employer]. Review of Systems Const Details: As per HPI Physical exam (Primary Care) Tobacco/Smoking Status: Tobacco use Status Tobacco use date assessed 02/10/24 04/23/24 14:59 Patient Tobacco Use Status Former Tobacco user 04/23/24 14:59 Tobacco use type Cigarette 04/23/24 14:59 e-Cigarette/Vaping Use Never Used 04/23/24 14:59 Thrive Assessment: Date of Thrive Assessment Date Thrive assessed 02/10/24 04/23/24 14:59 Telehealth Telehealth Telehealth Platform: Finalta Location of provider rendering services: practice address Location of patient: address on file Patient Identification confirmed using: Name, : Yes Telehealth method: video Patient verbally consented to treatment: Yes Patient verbally consented to billing insurance company: Yes Patient informed of any privacy concerns related to visit: Yes Minutes spent on Phone/Video with Pt.: 13 Coding Level of Care Code Est Pt Level 3 (50036) Diagnoses Frequency of urination R35.0 Assessment & Plan Assessment & Plan (1) Frequency of urination: Code(s): R35.0 - Frequency of micturition Category: Medical Plan This is a telemedicine visit Patient has been having frequency of urination Getting up at night to go to bathroom 3 times We did urinalysis which came back clean There is no signs of infection or uncontrolled sugar I am starting him on Flomax, I have placed a referral for Urology as well Review system reveals no nausea no vomiting no fever no chills no abdominal pain just a feeling of fullness suprapubic There is no pain around the scrotal area as well. No penile discharge Orders: Referrals Urology Referral R35.0 - Frequency of micturition Medications: New tamsulosin (Flomax) 0.4 mg PO BEDTIME 30 caps 0RF
== END 2024-04-23 15:26 | disposition home or self-care (01) ==
LOC: HO.HMCC 14:57
PROVIDERS: PCP Internal Medicine; Visit Provider Internal Medicine
DX: R35.0 Frequency of micturition (principal)

== ENCOUNTER → 2024-04-23 14:57 | Outpatient (BNVA) | payer OTHER, SELFPAY | PROVIDERS: PCP Internal Medicine; Visit Provider Internal Medicine | DX: R35.0 Frequency of micturition (principal) | CPT/HCPCS: 99212 ==

== ENCOUNTER 2024-06-22 08:47 | Outpatient (AMB) | payer OTHER, SELFPAY ==
--- NOTE | 2024-06-22 09:05 | A.OFFVIS_ITS ---
Intake Visit Reasons: nocturia/urinary frequency Intake Note: New Patient presents for initial visit for urinary frequency Urology Medications: none Blood Thinner: none PVR:46ml's Cracker Dough Mixer Required: No Accompanied by: Self / Same As Patient Allergies shellfish derived [SHELLFISH DERIVED] Allergy (Unknown, Verified 06/22/24 10:23) HIVES Medication List - Last Reconciled 06/22/24 by JIM Moran albuterol sulfate 90 mcg/actuation 2 puffs PO Q4H PRN 30 days albuterol sulfate 90 mcg/actuation (Ventolin HFA) 1 inh inhalation QID PRN 30 days blood sugar diagnostic (FreeStyle Lite Strips) Patient to take fasting blood sugar once daily blood-glucose meter (FreeStyle Lite Meter kit) Patient to take fasting blood sugar once daily cetirizine 10 mg PO DAILY 90 days epinephrine (EpiPen) 0.3 mg (0.3 mL) IM Q10M PRN 90 days glipizide-metformin 5-500 mg 1 tab PO BID 90 days lancets (FreeStyle Lancets) patient to take fasting blood sugar once daily losartan-hydrochlorothiazide 50-12.5 mg 1 tab PO DAILY 90 days HPI Comments Details: Cornelio is a very pleasant 43-year-old male patient of Dr. Stafford. He has a past medical history of asthma, allergies, diabetes, and elevated LFTs. He presents to the office today as a new patient for urinary frequency and nocturia. In discussion with the patient today he reports being diagnosed with diabetes and was started on medications that he noted caused him urinary urgency, urinary frequency, and nocturia. He discusses having stopped piglitazone and feels lower urinary tract symptoms significantly improved and he no longer has any brothersome urinary issues. He otherwise denies incontinence, hematuria, dysuria, foul smelling urine, changes to urinary stream, flank pain, fever, and or chills. In office urinalysis results reviewed with the patient today. PVR 46 mL. We discussed correlation of diabetes and lower urinary tract symptoms. We discussed obtaining retroperitoneal ultrasound for further assessment evaluation. Most recent A1c 11/20 6.6. He otherwise denies any other issues or concerns at this time. [facility] Medical History LFT elevation Impaired fasting blood sugar Environmental allergies Asthma, mild Surgical History No pertinent past surgical history Family History Father Unknown family medical history Mother HTN (hypertension) Diabetes mellitus High cholesterol Daughter No problems noted. Daughter No problems noted. Daughter No problems noted. Social History Housing: House Alcohol intake: never Patient Tobacco Use Status: Former Tobacco user Tobacco use type: Cigarette Years Smoked: 12 e-Cigarette/Vaping Use: Never Used Substance Use Type: Marijuana service: No Current occupational status: unemployed and student Cognitive needs: No Hearing needs: No Vision needs: No Review of Systems Const All systems reviewed & are unremarkable except as noted in HPI and below Physical Exam Const General: cooperative, healthy appearing, comfortable, no acute distress, well developed, alert and awake Orientation/consciousness: patient oriented x3 Limitations: no limitations HEENT Head: Yes normal to inspection, Yes normocephalic and Yes atraumatic Ears: hearing grossly normal bilaterally Eyes General: appearance normal, both eyes and all related structures Neck Neck: Yes normal visual inspection and Yes trachea midline Chest Chest palpation & inspection: normal inspection of the chest Resp Effort & Inspection: normal respiratory effort and able to speak in complete sentences Cardio Rate: regular rate GI Inspection: Yes normal to inspection General: Yes no CVA tenderness Back/Spine/Pelvis Back: no CVA tenderness Skin General skin exam: no rashes or lesions noted Neuro General: patient oriented x3 Extrem General: Yes normal to inspection Psych Appearance: grossly normal and well kempt Mental Status: mental status grossly normal Speech and movement: Normal speech and movement present and Clear speech present Affect: normal affect Attitude: cooperative Thought process: Normal thought process present Thought content: Normal thought content present Insight: Fair insight present (Psych) Judgement: Fair judgement present (Psych) Office Procedures Post Void Residual Post Residual Void Post Void Residual (PVR): 46 [id number] Void Residual by ultrasound Results AMB Urinalysis, Automated UA Leukoctes 0 Garrett/uL Last Edit by Vivi Gomez on 06/22/24 09:25 UA Nitrite Last Edit by Vivi Gomez on 06/22/24 09:25 UA Urobilinogen 0.2 mg/dL Last Edit by Vivi Gomez on 06/22/24 09:25 UA Protein 15 mg/dL Last Edit by Vivi Gomez on 06/22/24 09:25 UA pH 6.0 Last Edit by [employer]MobileGamer (TMG)vinny Gomez on 06/22/24 09:25 UA Blood 0 Fer/uL Last Edit by [employer]Mobile[employer]amer (TMG)vinny Gomez on 06/22/24 09:25 UA Specific [place] 1.030 Last Edit by Vivi Gomez on 06/22/24 09:25 UA Ketone Last Edit by Vivi Gomez on 06/22/24 09:25 UA Bilirubin 0 mg/dL Last Edit by [employer]MobileGamer (TMG)vinny Gomez on 06/22/24 09:25 UA Glucose 0 mg/dL Last Edit by [employer] on 06/22/24 09:25 Results Reviewed Results Reviewed: Laboratory Last Values Urine pH (Auto) 6.0 06/22/24 09:23 Specific [place] (Auto) 1.030 06/22/24 09:23 Urine Protein (Auto) 15 mg/dL 06/22/24 09:23 Glucose (UA)(Auto) 0 mg/dL 06/22/24 09:23 Urine Blood (Auto) 0 Fer/uL 06/22/24 09:23 Urine Bilirubin (Auto) 0 mg/dL 06/22/24 09:23 Urine Urobilinogen (Auto) 0.2 mg/dL 06/22/24 09:23 Leukocyte Esterase (Auto) 0 Garrett/uL 06/22/24 09:23 Assessment & Plan Assessment & Plan (1) Lower urinary tract symptoms: Code(s): R39.9 - Unspecified symptoms and signs involving the genitourinary system Category: Medical (2) Frequency of urination: Code(s): R35.0 - Frequency of micturition Category: Medical Plan In office urinalysis results reviewed with the patient today; as noted above. PVR 46 mL. We discussed correlation of diabetes and lower urinary tract symptoms. Patient currently denies any bothersome urinary issues or concerns. Reports be happy with current voiding parameters. Will obtain retroperitoneal ultrasound for further assessment evaluation. Follow-up in 3 months with imaging to be completed prior; or sooner with any issues, concerns, and or questions. Orders: Orders AMB Post Void Residual by ultrasound Today R35.0 - Frequency of micturition AMB Urinalysis Automated Today Z13.9 - Encounter for screening, unspecified US renal BI Today R39.9 - Unspecified symptoms and signs involving the genitourinary system Patient Instructions: The patient had an opportunity to ask questions regarding the treatment plan. All questions were answered. Physical exam, labs, and imaging were discussed and reviewed in detail. As well as risks, benefits, and discussion of treatment choices. No major barriers to understanding were identified. The patient expressed understanding and agreement with the above treatment plan. The patient was made aware they should contact our office by phone for worsening of their current condition, the appearance of new symptoms, or with any questions or concerns. Compliance is encouraged with any medications and follow up testing that is ordered. It is a privilege to be allowed the opportunity to participate in? your urological care.? Again, if you have any questions or concerns If you have any questions or concerns please do not hesitate to contact me. The office is [phone]. This note is constructed using voice recognition software. While every effort has been made to ensure accuracy spray worker errors may have been included. Yours sincerely, TEA Moran Coding Level of Care Code New Pt Level 3 (70969) Diagnoses Lower urinary tract symptoms R39.9 Frequency of urination R35.0 CPT Codes Post Residual Void - PVR CPT Code: 54080-Xkyp Void Residual by ultrasound ([id number])
== END 2024-06-22 09:47 | disposition home or self-care (01) ==
PROVIDERS: PCP Internal Medicine; Visit Provider Nurse Practitioner Family
DX: R39.9 Unspecified symptoms and signs involving the genitourinary system (principal); R35.0 Frequency of micturition; Z13.9 Encounter for screening, unspecified
CPT/HCPCS: 99203

== ENCOUNTER → 2024-06-22 08:47 | Outpatient (BNVA) | payer OTHER, SELFPAY | PROVIDERS: PCP Internal Medicine; Visit Provider Nurse Practitioner Family | DX: R35.0 Frequency of micturition (principal); R39.9 Unspecified symptoms and signs involving the genitourinary system | CPT/HCPCS: 51798; 81003; 99202 ==

== ENCOUNTER 2024-08-30 09:31 | Outpatient (REF) | payer OTHER, SELFPAY ==
--- NOTE | ~2024-08-30 | US_ITS ---
EXAMINATION: US RETROPERITONEAL COMPLETE (RENAL) CLINICAL INFORMATION: Low urinary issues.. COMPARISON: CT abdomen and pelvis without contrast 07/15/2020 TECHNIQUE: Real-time imaging of the kidneys and bladder. FINDINGS: RIGHT KIDNEY: 11.5 x 5.0 x 5.4 cm (SAG x AP x TRV). The kidney is normal in size, contour, and echogenicity. Renal cortical thickness is normal. No calculi or focal parenchymal lesions. No hydronephrosis. LEFT KIDNEY: 12.0 x 6.0 x 5.5 cm (SAG x AP x TRV). The kidney is normal in size, contour, and echogenicity. Renal cortical thickness is normal. No calculi or focal parenchymal lesions. No hydronephrosis. BLADDER: Well distended and normal. Left ureteral jet seen. Right ureteral jet not visualized. Prevoid bladder volume is 317 mL. Postvoid bladder volume is 0 mL. There is no bladder wall thickening. Normal prostate volume of 22.9 mL. US/US retroperitoneal comp IMPRESSION: Unremarkable renal ultrasound. Right ureteral jet is not visualized. Left neural jet is visualized in the bladder. 0 post void bladder volume. Electronically signed by: Manuelito Mascorro MD 08/31/2024 07:24 AM EST
== END 2024-08-30 09:32 | disposition home or self-care (01) ==
LOC: HO.HMGCX 09:31
PROVIDERS: PCP Internal Medicine; Visit Provider Nurse Practitioner Family
DX: R39.9 Unspecified symptoms and signs involving the genitourinary system (principal)
CPT/HCPCS: 76770

== ENCOUNTER → 2024-08-30 10:00 | Outpatient (BNV) | payer OTHER, SELFPAY | PROVIDERS: PCP Internal Medicine; Visit Provider Radiology Diagnostic Radiology | DX: R39.12 Poor urinary stream (principal) | CPT/HCPCS: 76770 ==

== ENCOUNTER 2024-09-21 10:37 | Outpatient (AMB) | payer OTHER, SELFPAY ==
--- NOTE | 2024-09-21 10:39 | A.OFFVIS_ITS ---
Intake Visit Reasons: 3m/US(set) Intake Note: Patient presents today for follow up on: urinary frequency and ultrasound results Imaging Completed: 08/30/24 Urology Medications: none Blood Thinner: none PVR:40ml's China Painter Required: No Accompanied by: Self / Same As Patient Allergies shellfish derived [SHELLFISH DERIVED] Allergy (Unknown, Verified 09/21/24 11:15) HIVES Medication List - Last Reconciled 09/21/24 by OLEGARIO Moran- albuterol sulfate 90 mcg/actuation 2 puffs PO Q4H PRN 30 days albuterol sulfate 90 mcg/actuation (Ventolin HFA) 1 inh inhalation QID PRN 30 days blood sugar diagnostic (FreeStyle Lite Strips) Patient to take fasting blood sugar once daily blood-glucose meter (FreeStyle Lite Meter kit) Patient to take fasting blood sugar once daily cetirizine 10 mg PO DAILY 90 days epinephrine (EpiPen) 0.3 mg (0.3 mL) IM Q10M PRN 90 days glipizide-metformin 5-500 mg 1 tab PO BID 90 days lancets (FreeStyle Lancets) patient to take fasting blood sugar once daily losartan-hydrochlorothiazide 50-12.5 mg 1 tab PO DAILY 90 days HPI Comments Details: Cornelio is a very pleasant 43-year-old male patient of Dr. Stafford. He has a past medical history of asthma, allergies, diabetes, and elevated LFTs. He presents to the office today for follow-up of his lower urinary tract symptoms. Of note, patient was seen approximately 3 months ago as a new patient for urinary frequency and nocturia at which time a retroperitoneal ultrasound was ordered for further assessment evaluation. These results were communicated and reviewed with the patient today 09/21 bilateral kidneys with no calculi, lesions, and or hydronephrosis. The bladder is well distended and normal. Pre void bladder volume is approximately 320 mL. Postvoid bladder volume is approximately 0 mL. There is no bladder wall thickening. Normal prostate measuring 23 mL. Unremarkable retroperitoneal ultrasound. He does feel he has urinary urgency and frequency typically in the morning however relates this to his increase water consumption while at the gym. He also reports intermittent episodes of getting up 1 time per night to urinate. He reports feeling since he has stopped his piglitazone urinary symptoms have significantly improved. He discusses attempting to utilize lifestyle modifications to improve his type 2 diabetes. In office urinalysis results reviewed with the patient today. PVR 40ml's. He denies incontinence, hematuria, dysuria, foul smelling urine, changes to urinary stream, flank pain, fever, and or chills. We discussed correlation of diabetes and lower urinary tract symptoms. He otherwise denies any other issues or concerns at this time. Plan The plan focuses on managing the patient's urinary frequency and nocturia through lifestyle adjustments, highlighting fluid intake moderation and timing, especially before sleep. This approach also encompasses continued control of Type 2 Diabetes Mellitus via diet and exercise. An annual follow-up is suggested unless symptoms notably increase, to monitor and guide ongoing care. Patient was informed and verbally consented to the use of an ambient scribe for clinic note documentation during this visit. Discussion Notes During the consultation, I discussed the link between fluid intake and urinary frequency, specifically advising moderation before bedtime to manage nocturia. Emphasis was placed on lifestyle modifications for managing Type 2 Diabetes Mellitus, highlighting the effectiveness of exercise and diet in regulating blood sugar and consequent urinary symptoms. The patient was informed about the normal imaging results and reassured about current prostate health. I suggested a follow-up in one year barring symptom progression, allowing the patient ample opportunity for interim guidance and contact if needed. [facility] Medical History LFT elevation Impaired fasting blood sugar Environmental allergies Asthma, mild Surgical History No pertinent past surgical history Family History Father Unknown family medical history Mother HTN (hypertension) Diabetes mellitus High cholesterol Daughter No problems noted. Daughter No problems noted. Daughter No problems noted. Social History Housing: House Alcohol intake: never Patient Tobacco Use Status: Former Tobacco user Tobacco use type: Cigarette Years Smoked: 12 e-Cigarette/Vaping Use: Never Used Substance Use Type: Marijuana service: No Current occupational status: unemployed and student Cognitive needs: No Hearing needs: No Vision needs: No Review of Systems Const All systems reviewed & are unremarkable except as noted in HPI and below Office Procedures Post Void Residual Post Residual Void Post Void Residual (PVR): 40 [id number] Void Residual by ultrasound Results AMB Urinalysis, Automated UA Leukoctes 0 Garrett/uL Last Edit by [employer] on 09/21/24 10:55 UA Nitrite Last Edit by [employer] on 09/21/24 10:55 UA Urobilinogen 0.2 mg/dL Last Edit by [employer] on 09/21/24 10:55 UA Protein 0 mg/dL Last Edit by [employer] on 09/21/24 10:55 UA pH 6.5 Last Edit by [employer] on 09/21/24 10:55 UA Blood 0 Fer/uL Last Edit by [employer] on 09/21/24 10:55 UA Specific [place] 1.005 Last Edit by [employer] on 09/21/24 10:55 UA Ketone Last Edit by [employer] on 09/21/24 10:55 UA Bilirubin 0 mg/dL Last Edit by [employer] on 09/21/24 10:55 UA Glucose 0 mg/dL Last Edit by [employer] on 09/21/24 10:55 Results Reviewed Results Reviewed: Date of Service: 08/30/24 Procedure(s): US retroperitoneal comp FINDINGS: RIGHT KIDNEY: 11.5 x 5.0 x 5.4 cm (SAG x AP x TRV). The kidney is normal in size, contour, and echogenicity. Renal cortical thickness is normal. No calculi or focal parenchymal lesions. No hydronephrosis. LEFT KIDNEY: 12.0 x 6.0 x 5.5 cm (SAG x AP x TRV). The kidney is normal in size, contour, and echogenicity. Renal cortical thickness is normal. No calculi or focal parenchymal lesions. No hydronephrosis. BLADDER: Well distended and normal. Left ureteral jet seen. Right ureteral jet not visualized. Prevoid bladder volume is 317 mL. Postvoid bladder volume is 0 mL. There is no bladder wall thickening. Normal prostate volume of 22.9 mL. IMPRESSION: Unremarkable renal ultrasound. Right ureteral jet is not visualized. Left neural jet is visualized in the bladder. 0 post void bladder volume. Assessment & Plan Assessment & Plan (1) Lower urinary tract symptoms: Code(s): R39.9 - Unspecified symptoms and signs involving the genitourinary system Category: Medical (2) Frequency of urination: Code(s): R35.0 - Frequency of micturition Category: Medical Plan In office urinalysis results with the patient today; as noted above. PVR 40 mL. Recent retroperitoneal ultrasound results reviewed with the patient today; as noted above. Patient feels lower urinary tract symptoms he had been experiencing have subsided and will continue with surveillance monitoring at this time. We discussed at length correlation of diabetes with lower urinary tract symptoms as well as overall health and well-being. He currently denies any bothersome urinary issues or concerns. We discussed importance of limiting fluids 2-3 hours prior to bed to decrease episodes of nocturia. Follow-up in 1 year with PVR; or sooner with any issues, concerns, and or questions. Orders: Orders AMB Urinalysis Automated Today Z13.9 - Encounter for screening, unspecified AMB Post Void Residual by ultrasound Today R39.9 - Unspecified symptoms and signs involving the genitourinary system Patient Instructions: The patient had an opportunity to ask questions regarding the treatment plan. All questions were answered. Physical exam, labs, and imaging were discussed and reviewed in detail. As well as risks, benefits, and discussion of treatment choices. No major barriers to understanding were identified. The patient expressed understanding and agreement with the above treatment plan. The patient was made aware they should contact our office by phone for worsening of their current condition, the appearance of new symptoms, or with any questions or concerns. Compliance is encouraged with any medications and follow up testing that is ordered. It is a privilege to be allowed the opportunity to participate in? your urological care.? Again, if you have any questions or concerns If you have any questions or concerns please do not hesitate to contact me. The office is [phone]. This note is constructed using voice recognition software. While every effort has been made to ensure accuracy automobile salesman errors may have been included. Yours sincerely, OLEGARIO Moran-BC Coding Level of Care Code Est Pt Level 3 (28988) Diagnoses Lower urinary tract symptoms R39.9 Frequency of urination R35.0 CPT Codes Post Residual Void - PVR CPT Code: 83592-Gbrp Void Residual by ultrasound ([id number])
== END 2024-09-21 11:05 | disposition home or self-care (01) ==
LOC: HO.HUSH 10:38
PROVIDERS: PCP Internal Medicine; Visit Provider Nurse Practitioner Family
DX: R39.9 Unspecified symptoms and signs involving the genitourinary system (principal); R35.0 Frequency of micturition; Z13.9 Encounter for screening, unspecified
CPT/HCPCS: 99213

== ENCOUNTER → 2024-09-21 10:37 | Outpatient (BNVA) | payer OTHER, SELFPAY | PROVIDERS: PCP Internal Medicine; Visit Provider Nurse Practitioner Family | DX: R39.9 Unspecified symptoms and signs involving the genitourinary system (principal); R35.0 Frequency of micturition | CPT/HCPCS: 51798; 81003; 99212 ==

== ENCOUNTER 2024-12-07 13:50 | Outpatient (REF) | payer OTHER, SELFPAY ==
[2024-12-07 16:12] LABS: MANUAL DIFF FLAG NO
[2024-12-07 16:19] LABS: Basophils Absolute Auto 0.1 X10*3/uL (0.0-0.2); Basophils Percent Auto 0.6 % (0-2); Eosinophils Absolute Auto 0.6 X10*3/uL (0.0-0.4); Eosinophils Percent Auto 5.4 % (0-4); Hematocrit 41.1 % (42.0-52.0); Hemoglobin 14.4 g/dl (14.0-18.0); Imm Gran Abs Auto 0.03 X10*3/uL (0.00-0.03); Imm Gran Pct Auto 0.3 % (0.0-0.4); Lymphocytes Absolute Auto 3.7 X10*3/uL (1.2-4.9); Lymphocytes Percent Auto 34.3 % (20-40); Mean Corpuscular Hemoglobin 30.5 pg (27.0-33.0); Mean Corpuscular Volume 87.1 fL (80.0-98.0); Mean Platelet Volume 11.6 fL (9.4-12.4); Monocytes Absolute Auto 0.9 X10*3/uL (0.1-1.2); Neutrophils Absolute Auto 5.5 x10*3/uL (2.0-8.3); Neutrophils Percent Auto 51.4 % (45-73); Platelet Count 186 X10*3/uL (160-400); Red Blood Count 4.72 X10*6/uL (4.60-5.80); Red Cell Distribution Width 12.1 % (11.0-16.0); White Blood Count 10.7 X10*3/uL (4.8-10.8)
[2024-12-07 16:26] LABS: Estimated Average Glucose 217 mg/dL; Hemoglobin A1c % 9.2 % (<6.0)
[2024-12-07 16:43] LABS: Alanine Aminotransferase 119 U/L (0-40); Albumin Level 4.8 g/dL (3.5-5.0); Alkaline Phosphatase 81 U/L (39-117); Anion Gap 15 (12-20); Aspartate Amino Transferase 84 U/L (5-37); Bilirubin Total 0.7 mg/dL (0.0-1.0); Blood Urea Nitrogen 19 mg/dL (9-16); Calcium 9.7 mg/dL (8.4-10.2); Carbon Dioxide 25 mmol/L (22-29); Chloride 99 mmol/L (96-108); Estimated Glomerular Filt Rate > 60; Glucose Random 247 mg/dL (60-115); Potassium 3.6 mmol/L (3.3-5.1); Sodium 135 mmol/L (135-145)
[2024-12-07 16:48] LABS: Creatinine Urine 200.79 mg/dL; Microalbum/Creatinine Ratio Ur 19.9 ug/mg cr (<30)
[2024-12-07 16:58] LABS: Vitamin B12 1009 pg/mL (200-900)
[2024-12-07 17:00] LABS: TSH reflex Free T4 1.83 uIU/mL (0.32-4.0)
[2024-12-08 06:48] LABS: LDL Cholesterol Direct 122 mg/dL (<100)
[2024-12-11 15:22] LABS: Vitamin D 25-OH, D2 <4 ng/mL; Vitamin D 25-OH, D3 25 ng/mL; Vitamin D 25-OH, Total 25 ng/mL (30-100)
== END 2024-12-07 13:51 | disposition home or self-care (01) ==
LOC: HO.HMGCLDS 13:50
PROVIDERS: PCP Internal Medicine; Visit Provider Internal Medicine
DX: Z00.01 Encounter for general adult medical examination with abnormal findings (principal); H81.10 Benign paroxysmal vertigo, unspecified ear; E11.65 Type 2 diabetes mellitus with hyperglycemia; I10 Essential (primary) hypertension; E78.9 Disorder of lipoprotein metabolism, unspecified; D63.8 Anemia in other chronic diseases classified elsewhere; E66.9 Obesity, unspecified; Z68.34 Body mass index [BMI] 34.0-34.9, adult; J45.998 Other asthma; Z91.09 Other allergy status, other than to drugs and biological substances; Z79.84 Long term (current) use of oral hypoglycemic drugs; Z79.899 Other long term (current) drug therapy
CPT/HCPCS: 36415; 80053; 82043; 82306; 82570; 82607; 83036; 83721; 84443; 85025; 96127

== ENCOUNTER 2024-12-07 13:50 | Outpatient (AMB) | payer OTHER, SELFPAY ==
--- NOTE | 2024-12-07 13:53 | A.OFFPC_ITS ---
Vital Signs 12/07/24 13:54 Height 5 ft 7 in Weight 223 lb BMI 34.9 BP 120/78 Blood Pressure Location Rt brachial Position Sitting Respiration 16 Pulse 95 Pulse Source Pulse Oximeter Temp 97.8 F Temp Source Oral Pulse Oximetry (%) 100 Oxygen Delivery Method Room Air Intake Visit Reasons: Annual PE Allergies shellfish derived [SHELLFISH DERIVED] Allergy (Unknown, Verified 12/07/24 13:55) HIVES Medication List - Last Reconciled 12/07/24 by Carrol Stafford MD albuterol sulfate 90 mcg/actuation 2 puffs PO Q4H PRN 30 days albuterol sulfate 90 mcg/actuation (Ventolin HFA) 1 inh inhalation QID PRN 30 days alcohol swabs (Alcohol Prep Pads) 1 pad topical DAILY blood sugar diagnostic (FreeStyle Lite Strips) Patient to take fasting blood sugar once daily blood-glucose meter (FreeStyle Lite Meter kit) Patient to take fasting blood sugar once daily cetirizine 10 mg PO DAILY 90 days epinephrine (EpiPen) 0.3 mg (0.3 mL) IM Q10M PRN 90 days glipizide-metformin 5-500 mg 1 tab PO BID 90 days lancets (FreeStyle Lancets) patient to take fasting blood sugar once daily losartan-hydrochlorothiazide 50-12.5 mg 1 tab PO DAILY 90 days Tobacco use date assessed: 12/07/24 Dental Screening Dental Screen Date: 12/07/24 Did you have a dental visit in the last 12 months?: No Did you have a dental problem in the last 6 months where you did not have access to dental care?: No Was dental information given to patient?: No HPI Annual PE HPI Details Physical exam appointment - The patient is a 43-year-old male pres enting for regular follow-up appointment Last time seen was January of last year Patient lost his insurance and could not come in for follow-up appointment Suffers from environmental allergies and stopped taking his antihistamine His allergies got worse, started having headaches but he is taking his antihistamine now Also complaining of feeling dizzy when he exercise and is in gym Upon further questioning it seems as if when he changes position then he feels dizzy for few sec Explained to patient that most likely because of fluid accumulation in his air due to allergies he has started having mild vertigo I would recommend to take meclizine [id number] as needed Diabetes mellitus: He is taking his medication - The patient has not reported using a g lucometer to check blood sugar levels despite having one. Blood pressure is controlled Medical History: - Type 2 Diabetes Mellitus - Essential Hypertension - Seasonal Allergic Rhinitis - Anemia - benign positional vertigo Social History: - The patient works at a [employer] where he described doing a variety of tasks. He recently lost his previous job, which resulted in a temporary loss of insurance. - Engages in regular exercise, attending the gym daily. - Has a known shellfish allergy. - Reports adequate sleep. Health Maintenance - [facility], and the last eye exam was over a year ago. - Blood pressure is being monitored; rec ent reading was 120/78 mmHg. - Labs from January showed slight anemia with a hemoglobin level of 13.3. - Encouraged to check blood sugar levels . Medications - Cetirizine for allergic rhinitis - Glipizide-Metformin 5-500 mg twice shawn ly for Type 2 Diabetes Mellitus - Losartan-Hydrochlorothiazide for Essen tial Hypertension Patient Instructions - Continue current medications as prescr ibed. - Follow recommendations for managing di zziness, including taking motion sickness tablets like Meclizine before workouts if needed. - Schedule and attend a diabetic eye exa m annually. - Contact healthcare provider if dizzine ss persists or worsens. - Ensure ongoing monitoring of blood pre ssure and blood sugar levels. Review of Systems - General: No fever no chills - Neurological: No headaches no dizzin ess - Ear nose throat: No sore throat no hearing difficulty no ear pain - Cardiovascular: No syncope, no chest pain, no palpitations - Gastrointestinal: No nausea vomiting or diarrhea - Endocrine: No polyuria polydipsia no heat intolerance - Genitourinary: No dysuria - Skin: No new complaints Physical Exam General: Cooperative, healthy appearing, comfortable, no acute distress Orientation: Patient oriented x3 Head: Normal to inspection Ears: Within normal limit visually, no pain in the ears Nose: Normal external nose present Face and sinus: Normal facial exam Eyes: Appearance normal, extraocular movement intact pupils reactive Neck: Normal visual inspection and supple Respiratory: Normal respiratory effort and able to speak in complete sentences. Clear to auscultation, no stridor Cardiovascular: S1 and S2 RRR GI: Normal to inspection. Soft to palpation and nontender Skin: Turgor normal, no acute findings Neuro: Patient oriented x3, motor sensory intact, balance intact, tandem pass. Extremities: Normal to inspection, range of motion intact [facility] Medical History LFT elevation Impaired fasting blood sugar Environmental allergies Asthma, mild Surgical History No pertinent past surgical history Family History Father Unknown family medical history Mother HTN (hypertension) Diabetes mellitus High cholesterol Daughter No problems noted. Daughter No problems noted. Daughter No problems noted. Social History Housing: House Alcohol intake: never Patient Tobacco Use Status: Former Tobacco user Tobacco use type: Cigarette Years Smoked: 12 e-Cigarette/Vaping Use: Never Used Substance Use Type: Marijuana service: No Current occupational status: unemployed and student Cognitive needs: No Hearing needs: No Vision needs: No Questionnaire PHQ-9 Over the last 2 weeks, how often have you been bothered by any of the following problems? 1. Little interest or pleasure in doing things: not at all 2. Feeling down, depressed, or hopeless: not at all 3. Trouble falling or staying asleep, or sleeping too much: not at all 4. Feeling tired or having little energy: not at all 5. Poor appetite or overeating: not at all 6. Feeling bad about yourself - or that you are a failure or have let yourself or your family down: not at all 7. Trouble concentrating on things, such as reading the newspaper or watching television: not at all 8. Moving or speaking so slowly that other people could have noticed. Or the opposite - being so fidgety or restless that you have been moving around a lot m ore than usual: not at all 9. Thoughts that you would be better off or of hurting yourself in some way: not at all Total score: 0 Depression Screening Interpretation: Negative Depression Screening Done: Yes 93223 - PHQ-9 Billing: Yes Source: Developed by Drs. Brock Gusman, Carly ValverdeRolly and colleagues, with an educational fartun from [employer]. Thrive Questionnaire Date Thrive assessed: 02/10/24 I am a: Patient What is your living situation today?: I choose not to answer this question Within the past 12 months, did the food you bought not last and you didn't have the money to get more?: I choose not to answer this question Within the past 12 months, did you worry whether your food would run out before you got money to buy more?: I choose not to answer this question Do you have trouble paying for medicines?: I choose not to answer this question Do you have trouble getting transportation to medical appointments?: I choose not to answer this question Do you have trouble paying your heating and electricity bill?: I choose not to answer this question Do you have trouble taking care of your child, family member or friend?: I choose not to answer this question Do you have trouble with day-to-day activities such as bathing, preparing meals, shopping, managing finances, etc.?: I choose not to answer this question Are you currently unemployed and looking for a job?: I choose not to answer this question Are you interested in more education?: I choose not to answer this question Please select the resources that you would like help with: None Currently or been in a relationship where the following occur: No concerns reported THRIVE Score: 0 AUDIT C Alcohol Use Questionnaire (AUDIT-C) 1. How often do you have a drink containing alcohol?: Never Total Score: 0 SALIMA-7 AMB Questionnaire SALIMA-7 Date SALIMA - 7 assessed: 02/10/24 Feeling nervous, anxious, or on edge: 1 = Several days Not being able to stop or control worryin = Not at all Worrying too much about different things: 0 = Not at all Trouble relaxin = Not at all Being so restless that it is hard to sit still: 0 = Not at all Becoming easily annoyed or irritable: 0 = Not at all Feeling afraid as if something awful might happen: 0 = Not at all Total SALIMA-7 score (0-4 normal; 5-9 mild; 10-14 moderate; 15-21 severe): 1 Source: Developed by Drs. Brock Gusman, Rolly Solis and colleagues, with an educational fartun from [employer]. Physical exam (Primary Care) Vital Signs: Last Vital Signs Temp 97.8 F 12/07/24 13:54 Pulse 95 12/07/24 13:54 Resp 16 12/07/24 13:54 BP 120/78 12/07/24 13:54 Pulse Ox 100 12/07/24 13:54 Oxygen Delivery Method Room Air 12/07/24 13:54 Tobacco/Smoking Status: Tobacco use Status Tobacco use date assessed 12/07/24 12/07/24 13:59 Patient Tobacco Use Status Former Tobacco user 12/07/24 13:59 Tobacco use type Cigarette 12/07/24 13:59 e-Cigarette/Vaping Use Never Used 12/07/24 13:59 PHQ-9: PHQ-9 Score PHQ-9: Total score 0 12/07/24 13:59 Depression Screening Interpretation: Negative Thrive Assessment: Date of Thrive Assessment Date Thrive assessed 02/10/24 12/07/24 13:59 Currently or been in a relationship where the following occur: No concerns reported Coding Level of Care Code Est Pt Level 3 (95751) Est Pt Prev Care 40-64y(75687) Diagnoses Encounter for general adult medical examination with abnormal findings Z00.01 Benign paroxysmal positional vertigo, unspecified laterality H81.10 Laterality: unspecified laterality Type 2 diabetes mellitus without complication, without long-term current use of insulin E11.9 Diabetes mellitus group home insulin use: without group home use Diabetes mellitus complication status: without complication Hypertension, essential I10 Lipid disorder E78.9 Anemia in other chronic diseases classified elsewhere D63.8 Anemia type: other cause Other causes of anemia: chronic disease, other Environmental allergies Z91.09 Obesity (BMI 30.0-34.9) E66.9 Seasonal asthma J45.998 Additional Codes PHQ-9 - 47623 - PHQ-9 Billing: Yes ([id number]) Assessment & Plan Assessment & Plan (1) Encounter for general adult medical examination with abnormal findings: Code(s): Z00.01 - Encounter for general adult medical examination with abnormal findings Category: Medical (2) Benign positional vertigo: Code(s): H81.10 - Benign paroxysmal vertigo, unspecified ear Category: Medical Qualifiers: Laterality: unspecified laterality Qualified Code(s): H81.10 - Benign paroxysmal vertigo, unspecified ear (3) Type 2 diabetes mellitus: Code(s): E11.9 - Type 2 diabetes mellitus without complications Category: Medical Qualifiers: Diabetes mellitus group home insulin use: without equipment operator intermodal yard use Diabetes mellitus complication status: without complication Qualified Code(s): E11.9 - Type 2 diabetes mellitus without complications (4) Hypertension, essential: Code(s): I10 - Essential (primary) hypertension Category: Medical (5) Lipid disorder: Code(s): E78.9 - Disorder of lipoprotein metabolism, unspecified Category: Medical (6) Anemia: Code(s): D64.9 - Anemia, unspecified Category: Medical Qualifiers: Anemia type: other cause Other causes of anemia: chronic disease, other Qualified Code(s): D63.8 - Anemia in other chronic diseases classified elsewhere (7) Environmental allergies: Code(s): Z91.09 - Other allergy status, other than to drugs and biological substances Category: Medical (8) Obesity (BMI 30.0-34.9): Code(s): E66.9 - Obesity, unspecified Category: Medical (9) Seasonal asthma: Code(s): J45.998 - Other asthma Category: Medical Plan Physical exam appointment - The patient is a 43-year-old male presenting for regular follow-up appointment Last time seen was January of last year Patient lost his insurance and could not come in for follow-up appointment Suffers from environmental allergies and stopped taking his antihistamine His allergies got worse, started having headaches but he is taking his antihistamine now Also complaining of feeling dizzy when he exercise and is in gym Upon further questioning it seems as if when he changes position then he feels dizzy for few sec Explained to patient that most likely because of fluid accumulation in his air due to allergies he has started having mild vertigo I would recommend to take meclizine [id number] as needed Diabetes mellitus: He is taking his medication - The patient has not reported using a glucometer to check blood sugar levels despite having one. 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 He recently lost his previous job, which resulted in a temporary loss of insurance. - Engages in regular exercise, attending the gym daily. - Has a known shellfish allergy. - Reports adequate sleep. Health Maintenance - The patient requires annual eye examinations due to diabetes, and the last eye exam was over a year ago. - Blood pressure is being monitored; recent reading was 120/78 mmHg. - Labs from January showed slight anemia with a hemoglobin level of 13.3. - Encouraged to check blood sugar levels. Medications - Cetirizine for allergic rhinitis - Glipizide-Metformin 5-500 mg twice daily for Type 2 Diabetes Mellitus - Losartan-Hydrochlorothiazide for Essential Hypertension Patient Instructions - Continue current medications as prescribed. - Follow recommendations for managing dizziness, including taking motion sickness tablets like Meclizine before workouts if needed. - Schedule and attend a diabetic eye exam annually. - Contact healthcare provider if dizziness persists or worsens. - Ensure ongoing monitoring of blood pressure and blood sugar levels. Orders: Orders Complete Blood Count Auto Diff Today D63.8 - Anemia in other chronic diseases classified elsewhere, E11.65 - Type 2 diabetes mellitus with hyperglycemia, E66.9 - Obesity, unspecified, E78.9 - Disorder of lipoprotein metabolism, unspecified, I10 - Essential (primary) hypertension, Z00.01 - Encounter for general adult medical examination with abnormal findings, Z91.09 - Other allergy status, other than to drugs and biological substances Comprehensive Met. Panel Today D63.8 - Anemia in other chronic diseases classified elsewhere, E11.65 - Type 2 diabetes mellitus with hyperglycemia, E66.9 - Obesity, unspecified, E78.9 - Disorder of lipoprotein metabolism, unspecified, I10 - Essential (primary) hypertension, Z00.01 - Encounter for general adult medical examination with abnormal findings, Z91.09 - Other allergy status, other than to drugs and biological substances Vitamin D 25-OH (D2 and D3) Today D63.8 - Anemia in other chronic diseases classified elsewhere, E11.65 - Type 2 diabetes mellitus with hyperglycemia, E66.9 - Obesity, unspecified, E78.9 - Disorder of lipoprotein metabolism, unspecified, I10 - Essential (primary) hypertension, Z00.01 - Encounter for general adult medical examination with abnormal findings, Z91.09 - Other allergy status, other than to drugs and biological substances TSH reflex Free T4 Today D63.8 - Anemia in other chronic diseases classified elsewhere, E11.65 - Type 2 diabetes mellitus with hyperglycemia, E66.9 - Obesity, unspecified, E78.9 - Disorder of lipoprotein metabolism, unspecified, I10 - Essential (primary) hypertension, Z00.01 - Encounter for general adult medical examination with abnormal findings, Z91.09 - Other allergy status, other than to drugs and biological substances Microalbumin, Random (w Creat) Today D63.8 - Anemia in other chronic diseases classified elsewhere, E11.65 - Type 2 diabetes mellitus with hyperglycemia, E66.9 - Obesity, unspecified, E78.9 - Disorder of lipoprotein metabolism, unspecified, I10 - Essential (primary) hypertension, Z00.01 - Encounter for general adult medical examination with abnormal findings, Z91.09 - Other allergy status, other than to drugs and biological substances Hemoglobin A1c Today D63.8 - Anemia in other chronic diseases classified elsewhere, E11.65 - Type 2 diabetes mellitus with hyperglycemia, E66.9 - Obesity, unspecified, E78.9 - Disorder of lipoprotein metabolism, unspecified, I10 - Essential (primary) hypertension, Z00.01 - Encounter for general adult medical examination with abnormal findings, Z91.09 - Other allergy status, other than to drugs and biological substances LDL Cholesterol Direct Today D63.8 - Anemia in other chronic diseases classified elsewhere, E11.65 - Type 2 diabetes mellitus with hyperglycemia, E66.9 - Obesity, unspecified, E78.9 - Disorder of lipoprotein metabolism, uns pecified, I10 - Essential (primary) hypertension, Z00.01 - Encounter for general adult medical examination with abnormal findings, Z91.09 - Other allergy status, other than to drugs and biological substances Vitamin B12 Today D63.8 - Anemia in other chronic diseases classified elsewhere, E11.65 - Type 2 diabetes mellitus with hyperglycemia, E66.9 - Obesity, unspecified, E78.9 - Disorder of lipoprotein metabolism, unspecified, I10 - Essential (primary) hypertension, Z00.01 - Encounter for general adult medical examination with abnormal findings, Z91.09 - Other allergy status, other than to drugs and biological substances Medications: New meclizine 25 mg PO DAILY PRN 30 tabs 0RF motion sickness
[2024-12-07 13:54] VITALS: BP 120/78; PULSE 95; RESP 16; TEMP 36.6; O2SAT 100; BMI 34.9
== END 2024-12-07 14:17 | disposition home or self-care (01) ==
LOC: HO.HMCC 13:51
PROVIDERS: PCP Internal Medicine; Visit Provider Internal Medicine
DX: Z00.01 Encounter for general adult medical examination with abnormal findings (principal); E11.9 Type 2 diabetes mellitus without complications; Z68.34 Body mass index [BMI] 34.0-34.9, adult; E66.9 Obesity, unspecified; H81.13 Benign paroxysmal vertigo, bilateral; I10 Essential (primary) hypertension; E78.9 Disorder of lipoprotein metabolism, unspecified; D63.8 Anemia in other chronic diseases classified elsewhere; Z91.09 Other allergy status, other than to drugs and biological substances; J45.998 Other asthma

== ENCOUNTER 2025-05-03 13:52 | Outpatient (AMB) | payer OTHER, SELFPAY ==
--- NOTE | 2025-05-03 13:54 | A.OFFPC_ITS ---
Vital Signs 05/03/25 14:03 Height 5 ft 7 in Weight 221 lb 4 oz BMI 34.6 BP 130/70 Blood Pressure Location Rt brachial Position Sitting Respiration 16 Pulse 81 Pulse Source Pulse Oximeter Temp 98.3 F Temp Source Temporal Artery Scan Pulse Oximetry (%) 95 Oxygen Delivery Method Room Air Intake Visit Reasons: GALI form Rivera diabetes/hypertension Intake Note: Cornelio presents in the office today for diabetes and hypertension. Transfer of Care. Allergies shellfish derived (SHELLFISH DERIVED) Allergy (Unknown, Verified 05/03/25 13:59) HIVES Medication List - Last Reconciled 05/03/25 by Ronald De Paz MD albuterol sulfate 90 mcg/actuation 2 puffs PO Q4H PRN 30 days albuterol sulfate 90 mcg/actuation (Ventolin HFA) 1 inh inhalation QID PRN 30 days alcohol swabs (Alcohol Prep Pads) 1 pad topical DAILY blood sugar diagnostic (FreeStyle Lite Strips) Patient to take fasting blood sugar once daily blood-glucose meter (FreeStyle Lite Meter kit) Patient to take fasting blood sugar once daily cetirizine 10 mg PO DAILY 90 days cholecalciferol (vitamin D3) 50 mcg PO DAILY 330 days dulaglutide (Trulicity) 0.75 mg (0.5 mL) subcut QWEEK 84 days epinephrine (EpiPen) 0.3 mg (0.3 mL) IM Q10M PRN 90 days glipizide ER 10 mg PO QAM 90 days lancets (FreeStyle Lancets) patient to take fasting blood sugar once daily losartan-hydrochlorothiazide 50-12.5 mg 1 tab PO DAILY 90 days metformin 500 mg PO BID 90 days Tobacco use date assessed: 05/03/25 Dental Screening Dental Screen Date: 05/03/25 Did you have a dental visit in the last 12 months?: No Did you have a dental problem in the last 6 months where you did not have access to dental care?: No Was dental information given to patient?: Patient has dentist HPI GALI form Rivera diabetes/hypertension HPI Details Patient presents for transfer of care/new patient visit Prior PCP: Dr. Stafford Last office visit/CPE: November 2024 Acute issue(s): Uncontrolled diabetes. A1c today 9.6% which is up from 9.2% in November. PMHx: Hypertension, diabetes, asthma, anemia, elevated liver enzymes, obesity, elevated lipids, low vitamin-D PFSH Medical History LFT elevation Impaired fasting blood sugar Environmental allergies Asthma, mild Surgical History No pertinent past surgical history Family History Father Unknown family medical history Mother HTN (hypertension) Diabetes mellitus High cholesterol Daughter No problems noted. Daughter No problems noted. Daughter No problems noted. Social History (Updated 05/03/25 @ 14:01 by Lelia Cottrell CMA) Housing: House Alcohol intake: never Patient Tobacco Use Status: Former Tobacco user Tobacco use type: Cigarette Years Smoked: 12 e-Cigarette/Vaping Use: Never Used Second Hand Smoke Exposure: No Substance Use Type: Marijuana service: No Current occupational status: unemployed and student Cognitive needs: No Hearing needs: No Vision needs: No Questionnaire Thrive Questionnaire Date Thrive assessed: 12/07/24 I am a: Patient What is your living situation today?: I choose not to answer this question Within the past 12 months, did the food you bought not last and you didn't have the money to get more?: I choose not to answer this question Within the past 12 months, did you worry whether your food would run out before you got money to buy more?: I choose not to answer this question Do you have trouble paying for medicines?: I choose not to answer this question Do you have trouble getting transportation to medical appointments?: I choose not to answer this question Do you have trouble paying your heating and electricity bill?: I choose not to answer this question Do you have trouble taking care of your child, family member or friend?: I choose not to answer this question Do you have trouble with day-to-day activities such as bathing, preparing meals, shopping, managing finances, etc.?: I choose not to answer this question Are you currently unemployed and looking for a job?: I choose not to answer this question Are you interested in more education?: I choose not to answer this question Please select the resources that you would like help with: None Currently or been in a relationship where the following occur: No concerns reported THRIVE Score: 0 AUDIT C Alcohol Use Questionnaire (AUDIT-C) 2. How many drinks containing alcohol do you have on a typical day when you are drinking?: 1 or 2 3. How often do you have six or more drinks on one occasion?: Never Total Score: 0 SALIMA-7 AMB Questionnaire SALIMA-7 Date SALIMA - 7 assessed: 02/10/24 Source: Developed by Drs. Brock Gusman, Carly Valverde, Rolly Santos and colleagues, with an educational fartun from [employer]. Review of Systems Const Denies chills, Denies fatigue, Denies fever(s), Denies headache(s) and Denies weakness ENT Denies dizziness and Denies headache(s) Card Denies chest pain, Denies lightheadedness, Denies dyspnea and Denies other (Palpitations) Resp Denies cough, Denies dyspnea, Denies wheezing and Denies other ( shortness of breath) Musc Denies numbness and Denies tingling Neuro Denies dizziness, Denies headache(s), Denies numbness, Denies tingling, Denies paresthesias and Denies weakness Psych Denies anxiety and Denies depression Endo Denies fatigue Aller/Immun Denies wheezing Physical exam (Primary Care) Vital Signs: Last Vital Signs Temp 98.3 F 05/03/25 14:03 Pulse 81 05/03/25 14:03 Resp 16 05/03/25 14:03 BP 130/70 05/03/25 14:03 Pulse Ox 95 05/03/25 14:03 Oxygen Delivery Method Room Air 05/03/25 14:03 BMI result Body Mass Index 34.6 Tobacco/Smoking Status: Tobacco use Status Tobacco use date assessed 05/03/25 05/03/25 14:02 Patient Tobacco Use Status Former Tobacco user 05/03/25 14:01 Tobacco use type Cigarette 05/03/25 14:01 e-Cigarette/Vaping Use Never Used 05/03/25 14:01 Thrive Assessment: Date of Thrive Assessment Date Thrive assessed 12/07/24 05/03/25 13:56 Currently or been in a relationship where the following occur: No concerns reported Const General: no acute distress and well developed Nutritional Appearance: well nourished Orientation/consciousness: patient oriented x3 HENMT Head: Yes normocephalic and Yes atraumatic Eyes General: appearance normal, both eyes and all related structures Pupils: Equal, round and reactive pupils present EOM: EOMs intact bilaterally Resp Effort & Inspection: normal respiratory effort Auscultation: clear to auscultation bilaterally Cardio Rate: regular rate Rhythm: regular rhythm Heart sounds: S1 normal heart sound present, S2 normal heart sound present, no gallops, no murmurs and no rubs Neuro General: patient oriented x3 and gait normal Cranial nerves: Yes Equal, round and reactive pupils present Psych Affect: normal affect Coding Level of Care Code New Pt Level 3 (94613) Diagnoses Diabetes type 2, uncontrolled E11.65 Hypertension, essential I10 Mild intermittent asthma without complication J45.20 Asthma complication type: uncomplicated Asthma persistence: intermittent Anemia in other chronic diseases classified elsewhere D63.8 Anemia type: other cause Other causes of anemia: chronic disease, other Laboratory exam ordered as part of routine general medical examination Z00.00 Assessment & Plan Assessment & Plan (1) Diabetes type 2, uncontrolled: Code(s): E11.65 - Type 2 diabetes mellitus with hyperglycemia Category: Medical Plan: A1c increased from 9.2% to 9.6%. Uncontrolled diabetes. Goal is less than 7.0% Will switch from combo pill 2 metformin 500 mg b.i.d. and glipizide ER 10 mg q.a.m.. Will add Trulicity Work on diet low in sugars and starches Will refer to the nurse navigator for diabetic teaching Close follow-up in 1 month. Reminded patient to call his cryogenics engineer. If he can not get an appointment with his cryogenics engineer he will let me know and I will make a new referral. (2) Hypertension, essential: Code(s): I10 - Essential (primary) hypertension Category: Medical Plan: Blood pressure is controlled. Goal is less than 140/90 Continue current medication (3) Asthma, mild: Code(s): J45.909 - Unspecified asthma, uncomplicated Category: Medical Qualifiers: Asthma complication type: uncomplicated Asthma persistence: intermittent Qualified Code(s): J45.20 - Mild intermittent asthma, uncomplicated Plan: Lungs are clear today (4) Anemia: Code(s): D64.9 - Anemia, unspecified Category: Medical Qualifiers: Anemia type: other cause Other causes of anemia: chronic disease, other Qualified Code(s): D63.8 - Anemia in other chronic diseases classified e lsewhere Plan: Check CBC (5) Laboratory exam ordered as part of routine general medical examination: Code(s): Z00.00 - Encounter for general adult medical examination without abnormal findings Category: Medical Plan: Check labs Orders: Orders AMB Hemoglobin A1c Today E11.65 - Type 2 diabetes mellitus with hyperglycemia Complete Blood Count Auto Diff Today Z00.00 - Encounter for general adult medical examination without abnormal findings Comprehensive [place]. Panel Fast Today Z00.00 - Encounter for general adult medical examination without abnormal findings Lipid Panel Today Z00.00 - Encounter for general adult medical examination without abnormal findings Prostate Specific Antigen Scr Today Z12.5 - Encounter for screening for malignant neoplasm of prostate UA CC w/rflx Micro + Cult Today Z00.00 - Encounter for general adult medical examination without abnormal findings Microalbumin, Random (w Creat) Today I10 - Essential (primary) hypertension TSH reflex Free T4 Today Z00.00 - Encounter for general adult medical examination without abnormal findings Vitamin D 25-OH Total Today E55.9 - Vitamin D deficiency, unspecified Medications: New metformin 500 mg PO BID 180 tabs 2RF 90 days dulaglutide (Trulicity) 0.75 mg (0.5 mL) subcut QWEEK 6 mL 3RF 84 days glipizide ER 10 mg PO QAM 90 tabs 2RF 90 days cholecalciferol (vitamin D3) 50 mcg PO DAILY 330 caps 2RF 330 days Discontinued glipizide-metformin 5-500 mg Discontinued Reason: Doctor's Order 1 tab PO BID 90 days 180 tabs 0RF Diabetes
[2025-05-03 14:03] VITALS: BP 130/70; PULSE 81; RESP 16; TEMP 36.8; O2SAT 95; BMI 34.6
== END 2025-05-03 14:50 | disposition home or self-care (01) ==
LOC: HO.HMCFM 13:53
PROVIDERS: PCP Family Medicine; Visit Provider Family Medicine
DX: E11.65 Type 2 diabetes mellitus with hyperglycemia (principal); I10 Essential (primary) hypertension; J45.20 Mild intermittent asthma, uncomplicated; D63.8 Anemia in other chronic diseases classified elsewhere; Z00.00 Encounter for general adult medical examination without abnormal findings

== ENCOUNTER → 2025-05-03 13:52 | Outpatient (BNVA) | payer OTHER, SELFPAY | PROVIDERS: PCP Internal Medicine; Visit Provider Family Medicine | DX: Z00.00 Encounter for general adult medical examination without abnormal findings (principal); E11.65 Type 2 diabetes mellitus with hyperglycemia; I10 Essential (primary) hypertension; J45.20 Mild intermittent asthma, uncomplicated; D63.8 Anemia in other chronic diseases classified elsewhere; E55.9 Vitamin D deficiency, unspecified | CPT/HCPCS: 83036 ==

== ENCOUNTER 2025-05-07 09:29 | Outpatient (REF) | payer OTHER, SELFPAY ==
[2025-05-07 11:25] LABS: MANUAL DIFF FLAG NO
[2025-05-07 11:45] LABS: Hematocrit 42.4 % (42.0-52.0); Hemoglobin 14.3 g/dl (14.0-18.0); Imm Gran Abs Auto 0.02 X10*3/uL (0.00-0.03); Imm Gran Pct Auto 0.3 % (0.0-0.4); Lymphocytes Absolute Auto 2.8 X10*3/uL (1.2-4.9); Mean Corpuscular HGB Conc 33.7 g/dl (31.0-36.0); Mean Corpuscular Hemoglobin 30.3 pg (27.0-33.0); Mean Corpuscular Volume 89.8 fL (80.0-98.0); NRBC Abs Auto 0.000 X10*3/uL (0.0-0.012); NRBC Pct Auto 0.0 /100WBC (0.0-0.2); Platelet Count 218 X10*3/uL (160-400); Red Blood Count 4.72 X10*6/uL (4.60-5.80); White Blood Count 6.5 X10*3/uL (4.8-10.8)
[2025-05-07 11:53] LABS: Appearance Urine Clear; Glucose Urine UA 500 mg/dL (Negative); PH 6.0 (5.0-9.0); Specific Gravity - Urine >= 1.030 (1.005-1.025)
[2025-05-07 11:58] LABS: Alanine Aminotransferase 127 U/L (0-40); Albumin Level 4.5 g/dL (3.5-5.0); Alkaline Phosphatase 76 U/L (39-117); Anion Gap 11 (12-20); Aspartate Amino Transferase 68 U/L (5-37); Blood Urea Nitrogen 20 mg/dL (9-16); Calcium 9.1 mg/dL (8.4-10.2); Carbon Dioxide 26 mmol/L (22-29); Chloride 103 mmol/L (96-108); Cholesterol 169 mg/dL (<200); Estimated Glomerular Filt Rate > 60; HDL Cholesterol 44 mg/dL (>40); Potassium 4.2 mmol/L (3.3-5.1); Sodium 136 mmol/L (135-145); Total Protein 7.4 g/dL (6.5-8.0); Triglycerides 75 mg/dL (<150)
[2025-05-07 12:01] LABS: Microalbum/Creatinine Ratio Ur 3.8 ug/mg cr (<30)
== END 2025-05-07 09:30 | disposition home or self-care (01) ==
LOC: HO.HMGCLDS 09:29
PROVIDERS: PCP Family Medicine; Visit Provider Family Medicine
DX: Z00.00 Encounter for general adult medical examination without abnormal findings (principal); Z12.5 Encounter for screening for malignant neoplasm of prostate; I10 Essential (primary) hypertension; E55.9 Vitamin D deficiency, unspecified
CPT/HCPCS: 36415; 80053; 80061; 81003; 82043; 82306; 82570; 84153; 84443; 85025

== ENCOUNTER 2025-06-09 13:43 | Outpatient (AMB) | payer OTHER, SELFPAY ==
--- NOTE | 2025-06-09 13:53 | MHC.PC.OV ---
Vital Signs 06/09/25 13:57 Height 5 ft 7 in Weight 217 lb BMI 34.0 BP 124/52 L Blood Pressure Location Rt brachial Position Sitting Respiration 20 Pulse 96 Pulse Source Pulse Oximeter Temp 98.2 F Temp Source Oral Pulse Oximetry (%) 95 Oxygen Delivery Method Room Air Intake Visit Reasons: f/u diabetes Intake Note: Follow up diabetes. Ink Maker Required: No Accompanied by: Self / Same As Patient Allergies shellfish derived (SHELLFISH DERIVED) Allergy (Unknown, Verified 06/09/25 13:56) HIVES Medication List - Last Reconciled 06/09/25 by Ronald De Paz MD albuterol sulfate 90 mcg/actuation 2 puffs PO Q4H PRN 30 days albuterol sulfate 90 mcg/actuation (Ventolin HFA) 1 inh inhalation QID PRN 30 days alcohol swabs (Alcohol Prep Pads) 1 pad topical DAILY blood sugar diagnostic (Accu-Chek Guide test strips) Test Blood Sugar 2 times a day As directed, 90 days blood sugar diagnostic (FreeStyle Lite Strips) Patient to take fasting blood sugar once daily blood-glucose meter (FreeStyle Lite Meter kit) Patient to take fasting blood sugar once daily blood-glucose meter (Accu-Chek Guide Me Glucose Meter) Check Blood Sugar 2 times a Day As directed, 999 days cetirizine 10 mg PO DAILY 90 days cholecalciferol (vitamin D3) 50 mcg PO DAILY 330 days dulaglutide 1.5 mg (0.5 mL) subcut QWEEK 84 days epinephrine (EpiPen) 0.3 mg (0.3 mL) IM Q10M PRN 90 days glipizide ER 10 mg PO QAM 90 days lancets (Accu-Chek Softclix Lancets) Check Blood Sugar 2 Times a Day As directed, 90 days lancets (FreeStyle Lancets) patient to take fasting blood sugar once daily losartan-hydrochlorothiazide 50-12.5 mg 1 tab PO DAILY 90 days metformin 500 mg PO BID 90 days Tobacco use date assessed: 05/03/25 Dental Screening Dental Screen Date: 05/03/25 HPI f/u diabetes HPI Details 44 y/o male presents to f/u diabetes. Last A1c 05/03/25 9.6%. Had added Trulicity. Switched from combo pill to metformin 500mg b.i.d. and glipizide 10mg q.a.m. A1c today 7.7%. Labs drawn 05/07/25. Reviewed labs with pt. Elevated liver enzymes - AST 68, ALT 127. LDL 110. Triglycerides 75. TC 169. HDL 44. HPI Comments History of Present Illness Details Documentation assistance for Ronald De Paz MD, was provided by Claudy Rios,? Client Insights Consultant on 06/09/2025 at 2:17 PM EST. I, Dr. De Paz, have read, observed, and verified documentation. [facility] Medical History LFT elevation Impaired fasting blood sugar Environmental allergies Asthma, mild Surgical History No pertinent past surgical history Family History Father Unknown family medical history Mother HTN (hypertension) Diabetes mellitus High cholesterol Daughter No problems noted. Daughter No problems noted. Daughter No problems noted. Social History Housing: House Alcohol intake: never Patient Tobacco Use Status: Former Tobacco user Tobacco use type: Cigarette Years Smoked: 12 e-Cigarette/Vaping Use: Never Used Second Hand Smoke Exposure: No Substance Use Type: Marijuana service: No Current occupational status: unemployed and student Cognitive needs: No Hearing needs: No Vision needs: No Questionnaire PHQ-9 Over the last 2 weeks, how often have you been bothered by any of the following problems? 1. Little interest or pleasure in doing things: not at all 2. Feeling down, depressed, or hopeless: not at all 3. Trouble falling or staying asleep, or sleeping too much: not at all 4. Feeling tired or having little energy: not at all 5. Poor appetite or overeating: not at all 6. Feeling bad about yourself - or that you are a failure or have let yourself or your family down: not at all 7. Trouble concentrating on things, such as reading the newspaper or watching television: not at all 8. Moving or speaking so slowly that other people could have noticed. Or the opposite - being so fidgety or restless that you have been moving around a lot more than usual: not at all 9. Thoughts that you would be better off or of hurting yourself in some way: not at all Total score: 0 Depression Screening Interpretation: Negative Depression Screening Done: Yes 27153 - PHQ-9 Billing: Yes Source: Developed by Drs. Brock Gusman, Carly Valverde, Rolly Santos and colleagues, with an educational fartun from [employer]. Thrive Questionnaire Date Thrive assessed: 12/07/24 I am a: Patient What is your living situation today?: I choose not to answer this question Within the past 12 months, did the food you bought not last and you didn't have the money to get more?: I choose not to answer this question Within the past 12 months, did you worry whether your food would run out before you got money to buy more?: I choose not to answer this question Do you have trouble paying for medicines?: I choose not to answer this question Do you have trouble getting transportation to medical appointments?: I choose not to answer this question Do you have trouble paying your heating and electricity bill?: I choose not to answer this question Do you have trouble taking care of your child, family member or friend?: I choose not to answer this question Do you have trouble with day-to-day activities such as bathing, preparing meals, shopping, managing finances, etc.?: I choose not to answer this question Are you currently unemployed and looking for a job?: I choose not to answer this question Are you interested in more education?: I choose not to answer this question Please select the resources that you would like help with: None Currently or been in a relationship where the following occur: No concerns reported THRIVE Score: 0 AUDIT C Alcohol Use Questionnaire (AUDIT-C) 2. How many drinks containing alcohol do you have on a typical day when you are drinking?: 1 or 2 3. How often do you have six or more drinks on one occasion?: Never Total Score: 0 SALIMA-7 AMB Questionnaire SALIMA-7 Date SALIMA - 7 assessed: 02/10/24 Source: Developed by Drs. Brock Gusman, Carly Valverde, Rolly Santos and colleagues, with an educational fartun from [employer]. Review of Systems Const Denies chills, Denies fatigue, Denies fever(s), Denies headache(s) and Denies weakness ENT Denies dizziness and Denies headache(s) Card Denies dyspnea Resp Denies cough, Denies dyspnea, Denies wheezing and Denies other (shortness of breath) Musc Denies numbness and Denies tingling Neuro Denies dizziness, Denies headache(s), Denies numbness, Denies tingling and Denies weakness Psych Denies anxiety and Denies depression Endo Denies fatigue Aller/Immun Denies wheezing Physical exam (Primary Care) Vital Signs: Last Vital Signs Temp 98.2 F 06/09/25 13:57 Pulse 96 06/09/25 13:57 Resp 20 06/09/25 13:57 BP 124/52 L 06/09/25 13:57 Pulse Ox 95 06/09/25 13:57 Oxygen Delivery Method Room Air 06/09/25 13:57 BMI result Body Mass Index 34.0 Tobacco/Smoking Status: Tobacco use Status Tobacco use date assessed 05/03/25 06/09/25 13:55 Patient Tobacco Use Status Former Tobacco user 06/09/25 13:55 Tobacco use type Cigarette 06/09/25 13:55 e-Cigarette/Vaping Use Never Used 06/09/25 13:55 PHQ-9: PHQ-9 Score PHQ-9: Total score 0 06/09/25 14:29 Depression Screening Interpretation: Negative Thrive Assessment: Date of Thrive Assessment Date Thrive assessed 12/07/24 06/09/25 13:55 Currently or been in a relationship where the following occur: No concerns reported Const General: well developed; No acute distress Nutritional Appearance: well nourished Orientation/consciousness: patient oriented x3 [facility] Head: Yes normocephalic and Yes atraumatic Eyes General: appearance normal, both eyes and all related structures Pupils: Equal, round and reactive pupils present EOM: EOMs intact bilaterally Resp Effort & Inspection: normal respiratory effort Auscultation: clear to auscultation bilaterally Cardio Rate: regular rate Rhythm: regular rhythm Heart sounds: S1 normal heart sound present, S2 normal heart sound present, no gallops, no murmurs and no rubs Neuro General: patient oriented x3 and gait normal Cranial nerves: Yes Equal, round and reactive pupils present Psych Affect: normal affect Results AMB Hemoglobin A1c AMB Hemoglobin A1c 7.7 % Last Edit by Logan Jin CMA on 06/09/25 14:30 Results Reviewed Results Reviewed: Laboratory Last Values Hgb A1c (Clinic) 7.7 % (4.0-6.0) H 06/09/25 14:29 Coding Level of Care Code Est Pt Level 4 (30040) Diagnoses Type 2 diabetes mellitus without complication, without long-term current use of insulin E11.9 Diabetes mellitus complication status: without complication Diabetes mellitus fdc insulin use: without fdc use Hypertension, essential I10 Elevated liver enzymes R74.8 Elevated LDL cholesterol level E78.00 Additional Codes PHQ-9 - 10715 - PHQ-9 Billing: Yes ([id number]) Assessment & Plan Assessment & Plan (1) Type 2 diabetes mellitus: Code(s): E11.9 - Type 2 diabetes mellitus without complications Category: Medical Qualifiers: Diabetes mellitus complication status: without complication Diabetes mellitus fdc insulin use: without intermodal owner operator truck driver use Qualified Code(s): E11.9 - Type 2 diabetes mellitus without complications Plan: A1c improving. Still above goal of less than 7.0% Increased Trulicity Continue metformin and glipizide as prescribed Overdue for diabetic retinal exam-referred to ophthalmology (2) Hypertension, essential: Code(s): I10 - Essential (primary) hypertension Category: Medical Plan: Blood pressure is controlled. Goal is less than 140/90 Continue current medication (3) Elevated liver enzymes: Code(s): R74.8 - Abnormal levels of other serum enzymes Category: Medical (4) Elevated LDL cholesterol level: Code(s): E78.00 - Pure hypercholesterolemia, unspecified Category: Medical Plan Mildly elevated LDL cholesterol Liver enzymes have been elevated as well. Will follow-up on these at his next visit Orders: Orders AMB Hemoglobin A1c Today Z13.9 - Encounter for screening, unspecified Referrals Ophthalmology Referral E11.9 - Type 2 diabetes mellitus without complications Medications: Changed From dulaglutide (Trulicity) 0.75 mg (0.5 mL) subcut QWEEK 84 days 6 mL 3RF To dulaglutide 1.5 mg (0.5 mL) subcut QWEEK 6 mL 3RF 84 days
[2025-06-09 13:57] VITALS: BP 124/52; PULSE 96; RESP 20; TEMP 36.8; O2SAT 95; BMI 34.0
== END 2025-06-09 14:36 | disposition home or self-care (01) ==
LOC: HO.HMCFM 13:44
PROVIDERS: PCP Family Medicine; Visit Provider Family Medicine
DX: E11.9 Type 2 diabetes mellitus without complications (principal); I10 Essential (primary) hypertension; R74.8 Abnormal levels of other serum enzymes; E78.00 Pure hypercholesterolemia, unspecified; Z13.9 Encounter for screening, unspecified

== ENCOUNTER → 2025-06-09 13:43 | Outpatient (BNVA) | payer OTHER, SELFPAY | PROVIDERS: PCP Family Medicine; Visit Provider Family Medicine | DX: Z13.31 Encounter for screening for depression (principal); E11.9 Type 2 diabetes mellitus without complications | CPT/HCPCS: 83036; 96127 ==